=== PATIENT | female | born 1955 | race Caucasian/White ===

== ENCOUNTER → 2017-10-25 | Outpatient (CLI) | payer SELFPAY ==
--- NOTE | 2017-10-25 23:41 | WWHP ---
[facility] - HISTORY AND PHYSICAL DATE OF DICTATION: 10/25/2017 CHIEF COMPLAINT: The patient is here for her routine gynecologic exam and mammogram. HPI: This is a 62-year-old G0 with an LMP of 2004. The patient is without gynecologic complaints. PAST MEDICAL HISTORY: Chronic hypertension and seasonal allergies. MEDICATIONS: Lisinopril 10 mg daily. Calan SR 240 mg daily, Benadryl p.r.n., Advil p.r.n., multivitamin daily, calcium 1000 mg daily, vitamin D3 1000 units daily. ALLERGIES: TO SULFA, PENICILLIN, CODEINE, AND LATEX. PAST SURGICAL HISTORY: Bilateral salpingectomy in 1992 for benign growths, colonoscopy 2012 and this was her second one. 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 SOCIAL HISTORY: She quit smoking in 1979 but has socially smoked cigarettes. She socially drinks alcohol and denies drug use. She has 1 adopted child. She is . 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 FAMILY HISTORY: Mother from pancreatic cancer. Father has hypertension and type 2 diabetes. REVIEW OF SYSTEMS: She has gained about 16 pounds over the last one and half years. She denies respiratory, cardiac or GI problems. PHYSICAL EXAM: Blood pressure 112/75, height 5 feet 4 inches, weight 172 pounds. BMI 30, temperature 97.4, pulse 84. This is a well-developed, well-nourished female who is alert and oriented x3, in no acute distress. HEENT: Within normal limits. NECK: Supple without mass or thyromegaly chest. LUNGS: Clear to auscultation. HEART: Regular rate and rhythm. Breasts are without mass or discharge. Axillary exam is negative for adenopathy. Back negative for CVA tenderness. ABDOMEN: Soft, nontender, without palpable masses. Pelvic exam: External genitalia reveals mild atrophy without lesions. Cervix and vagina reveals mild atrophy without lesions. There is no evidence of prolapse. The uterus is mid position nongravid size and nontender. There are no palpable adnexal masses or tenderness. Rectovaginal exam is negative for mass or tenderness and is negative for occult blood. Extremities nontender. IMPRESSION: 62-year-old menopausal female with normal gynecologic exam. PLAN: 1. Pap smear was deferred since she had a normal 1 less than 2 years ago. 2. Self-breast examination was discussed. 3. Screening mammogram will be done today. 4. Osteoporosis prevention was discussed. I have recommended bone density screening. She states that she would like to do this next year. 5. She will return in 1 year. MMODL / IJN: [id number] /
--- NOTE | 2017-10-26 11:19 | MM ---
Reason for exam: screening (asymptomatic). Last mammogram was performed 1 year and 8 months ago. History: Patient is postmenopausal. Took hormonal contraceptives for 10 years. Physical Findings: A clinical breast exam by your physician is recommended on an annual basis and results should be correlated with mammographic findings. MG 3D Screening Mammo W/Cad Bilateral CC and MLO view(s) were taken. Prior study comparison: February 18, 2016, bilateral MG 3d diag mammo w/cad [facility]. July 10, 2015, mammogram, performed at [facility]. There are scattered fibroglandular densities. There is no discrete abnormality. No significant changes when compared with prior studies. ASSESSMENT: Negative, BI-RAD 1 RECOMMENDATION: Routine screening mammogram of both breasts in 1 year.
== END | disposition home or self-care (01) ==
LOC: WWCWWP 12:14
PROVIDERS: ATTEND Obstetrics & Gynecology
DX: Z12.31 Encounter for screening mammogram for malignant neoplasm of breast (principal)
CPT/HCPCS: 77063; 77067

== ENCOUNTER 2020-08-29 15:28 | Emergency (ER) | payer MEDICARE ==
[2020-08-29 15:49] VITALS: TEMP 98.2
--- NOTE | 2020-08-29 16:21 | XR ---
EXAMINATION TYPE: XR chest 1V portable DATE OF EXAM: 08/29/2020 COMPARISON: None INDICATION: Suspected Covid 19 pneumonia short of breath, cough TECHNIQUE: Single frontal view of the chest is obtained. FINDINGS: The heart size is normal. The pulmonary vasculature is normal. The lungs are clear. IMPRESSION: 1. No acute pulmonary process.
[2020-08-29 16:27] LABS: Basophils # (A) 0.1 k/uL (0-0.2); Basophils % (A) 1 %; Eosinophils # (A) 0.4 k/uL (0-0.7); Eosinophils % (A) 4 %; HCT 43.6 % (34.0-46.0); HGB 14.4 gm/dL (11.4-16.0); Lymphocytes # (A) 1.8 k/uL (1.0-4.8); Lymphocytes % (A) 18 %; MCH 29.9 pg (25.0-35.0); MCV 90.5 fL (80.0-100.0); Monocytes # (A) 0.4 k/uL (0-1.0); Monocytes % (A) 4 %; Neutrophils # (A) 6.9 k/uL (1.3-7.7); Neutrophils % (A) 71 %; Platelet Count 274 k/uL (150-450); RBC 4.82 m/uL (3.80-5.40); RDW 13.2 % (11.5-15.5); WBC 9.7 k/uL (3.8-10.6)
--- NOTE | 2020-08-29 16:35 | ED ---
SOB HPI - General Chief Complaint: Shortness of Breath Stated Complaint: COVID SYMPTOMS. FEELING WORSE. Time Seen by Provider: 08/29/20 15:51 Source: patient, RN notes reviewed, old records reviewed Mode of arrival: wheelchair Limitations: no limitations - History of Present Illness Initial Comments: This is a 65-year-old female she presents today for evaluation regards to shortness of breath. Patient does have persistent shortness of breath here in the ER with occasional cough. Denying chest pain. No recent travel history sick contacts, denying any known coronavirus contacts, patient does debated she has had a fever that started today. No other illnesses no pain no nausea vomiting or diarrhea. 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 MD Complaint: shortness of breath, cough -: days(s) (5) Severity: moderate Severity scale (1-10): 6 Quality: aching Consistency: intermittent Improves With: nothing Worsens With: nothing Known History Of: COPD, asthma, other (History of legionnaire's disease) Context: recent URI, recent illness Associated Symptoms: denies other symptoms - Related Data Home Medications Medication Instructions Recorded Confirmed Albuterol Inhaler [Ventolin Hfa 2 puff INHALATION RT-Q6H PRN 08/29/20 08/29/20 Inhaler] Albuterol Nebulized [Ventolin 2.5 mg INHALATION RT-Q6H PRN 08/29/20 08/29/20 Nebulized] Fexofenadine HCl [Sheron Allergy] 180 mg PO DAILY 08/29/20 08/29/20 Fluticasone/Vilanterol [Breo 1 puff INHALATION RT-DAILY 08/29/20 08/29/20 Ellipta 100-25 Mcg Inhaler] Lisinopril [Zestril] 10 mg PO DAILY 08/29/20 08/29/20 Montelukast Sodium [Singulair] 10 mg PO HS 08/29/20 08/29/20 Verapamil HCl [Verapamil ER] 240 mg PO HS 08/29/20 08/29/20 Allergies Allergy/AdvReac Type Severity Reaction Status Date / Time codeine Allergy Nausea Verified 08/29/20 17:15 latex Allergy Rash/Hives Verified 08/29/20 17:15 Penicillins Allergy Rash/Hives Verified 08/29/20 17:15 Sulfa (Sulfonamide Allergy Swelling Verified 08/29/20 17:15 Antibiotics) Review of Systems ROS Statement: Those systems with pertinent positive or pertinent negative responses have been documented in the HPI. ROS Other: All systems not noted in ROS Statement are negative. Past Medical History Past Medical History: Asthma, Hypertension Additional Past Medical History / Comment(s): legionares disease History of Any Multi-Drug Resistant Organisms: None Reported Past Surgical History: No Surgical Hx Reported Past Psychological History: No Psychological Hx Reported Smoking Status: Never smoker Past Alcohol Use History: None Reported Past Drug Use History: None Reported General Exam Limitations: no limitations General appearance: alert, in no apparent distress Head exam: Present: atraumatic, normocephalic, normal inspection Eye exam: Present: normal appearance, PERRL, EOMI. Absent: scleral icterus, conjunctival injection, periorbital swelling ENT exam: Present: normal exam, mucous membranes moist Neck exam: Present: normal inspection. Absent: tenderness, meningismus, lymphadenopathy Respiratory exam: Present: wheezes. Absent: respiratory distress, rales, rhonchi, stridor Cardiovascular Exam: Present: regular rate, normal rhythm, normal heart sounds. Absent: systolic murmur, diastolic murmur, rubs, gallop, clicks GI/Abdominal exam: Present: soft, normal bowel sounds. Absent: distended, tenderness, guarding, rebound, rigid Extremities exam: Present: normal inspection, full ROM, normal capillary refill. Absent: tenderness, pedal edema, joint swelling, calf tenderness Back exam: Present: normal inspection Neurological exam: Present: alert, oriented X3, CN II-XII intact Psychiatric exam: Present: normal affect, normal mood Skin exam: Present: warm, dry, intact, normal color. Absent: rash Course Vital Signs 08/29/20 08/29/20 08/29/20 15:43 16:16 16:23 Temperature 98.2 F Pulse Rate 98 81 Respiratory 18 17 20 Rate Blood Pressure 157/82 O2 Sat by Pulse 98 94 L Oximetry 08/29/20 08/29/20 16:30 17:31 Temperature Pulse Rate 85 78 Respiratory 18 18 Rate Blood Pressure 129/82 128/72 O2 Sat by Pulse 95 98 Oximetry - Reevaluation(s) Reevaluation #1: 08/29/20 17:17 Record is reviewed Reevaluation #2: 08/29/20 17:18 Patient symptoms unchanged with breathing treatment Reevaluation #3: 08/29/20 18:08 Patient informed results, questions have been answered Medical Decision Making - Medical Decision Making 65 female presents today for evaluation regarding cough or congestion negative coronavirus negative flu negative x-ray. Patient can be discharged home with mild bronchitis - Lab Data Result diagrams: 08/29/20 16:00 08/29/20 16:00 Lab Results 08/29/20 08/29/20 08/29/20 Range/Units 16:00 16:00 16:00 WBC 9.7 (3.8-10.6) k/uL RBC 4.82 (3.80-5.40) m/uL Hgb 14.4 (11.4-16.0) gm/dL Hct 43.6 (34.0-46.0) % MCV 90.5 (80.0-100.0) fL MCH 29.9 (25.0-35.0) pg MCHC 33.0 (31.0-37.0) g/dL RDW 13.2 (11.5-15.5) % Plt Count 274 (150-450) k/uL MPV 7.0 Neutrophils % 71 % Lymphocytes % 18 % Monocytes % 4 % Eosinophils % 4 % Basophils % 1 % Neutrophils # 6.9 (1.3-7.7) k/uL Lymphocytes # 1.8 (1.0-4.8) k/uL Monocytes # 0.4 (0-1.0) k/uL Eosinophils # 0.4 (0-0.7) k/uL Basophils # 0.1 (0-0.2) k/uL PT 9.6 (9.0-12.0) sec INR 0.9 (<1.2) APTT 23.1 (22.0-30.0) sec Sodium 138 (137-145) mmol/L Potassium 4.1 (3.5-5.1) mmol/L Chloride 106 (98-107) mmol/L Carbon Dioxide 26 (22-30) mmol/L Anion Gap 6 mmol/L BUN 19 H (7-17) mg/dL Creatinine 0.83 (0.52-1.04) mg/dL Est GFR (CKD-EPI)AfAm 85 (>60 ml/min/1.73 sqM) Est GFR (CKD-EPI)NonAf 74 (>60 ml/min/1.73 sqM) Glucose 110 H (74-99) mg/dL Plasma Lactic Acid Murtaza (0.7-2.0) mmol/L Calcium 9.2 (8.4-10.2) mg/dL Magnesium 2.1 (1.6-2.3) mg/dL Total Bilirubin 0.4 (0.2-1.3) mg/dL AST 38 H (14-36) U/L ALT 40 H (4-34) U/L Alkaline Phosphatase 73 (38-126) U/L Lactate Dehydrogenase 499 (313-618) U/L C-Reactive Protein <5.0 (<10.0) mg/L Total Protein 7.6 (6.3-8.2) g/dL Albumin 4.3 (3.5-5.0) g/dL Coronavirus (PCR) (Not Detectd) Influenza Type A RNA (Not Detectd) Influenza Type B (PCR) (Not Detectd) 08/29/20 08/29/20 08/29/20 Range/Units 16:00 16:15 17:31 WBC (3.8-10.6) k/uL RBC (3.80-5.40) m/uL Hgb (11.4-16.0) gm/dL Hct (34.0-46.0) % MCV (80.0-100.0) fL MCH (25.0-35.0) pg MCHC (31.0-37.0) g/dL RDW (11.5-15.5) % Plt Count (150-450) k/uL MPV Neutrophils % % Lymphocytes % % Monocytes % % Eosinophils % % Basophils % % Neutrophils # (1.3-7.7) k/uL Lymphocytes # (1.0-4.8) k/uL Monocytes # (0-1.0) k/uL Eosinophils # (0-0.7) k/uL Basophils # (0-0.2) k/uL PT (9.0-12.0) sec INR (<1.2) APTT (22.0-30.0) sec Sodium (137-145) mmol/L Potassium (3.5-5.1) mmol/L Chloride (98-107) mmol/L Carbon Dioxide (22-30) mmol/L Anion Gap mmol/L BUN (7-17) mg/dL Creatinine (0.52-1.04) mg/dL Est GFR (CKD-EPI)AfAm (>60 ml/min/1.73 sqM) Est GFR (CKD-EPI)NonAf (>60 ml/min/1.73 sqM) Glucose (74-99) mg/dL Plasma Lactic Acid Murtaza 1.9 (0.7-2.0) mmol/L Calcium (8.4-10.2) mg/dL Magnesium (1.6-2.3) mg/dL Total Bilirubin (0.2-1.3) mg/dL AST (14-36) U/L ALT (4-34) U/L Alkaline Phosphatase (38-126) U/L Lactate Dehydrogenase (313-618) U/L C-Reactive Protein (<10.0) mg/L Total Protein (6.3-8.2) g/dL Albumin (3.5-5.0) g/dL Coronavirus (PCR) Not Detected (Not Detectd) Influenza Type A RNA Not Detected (Not Detectd) Influenza Type B (PCR) Not Detected (Not Detectd) - EKG Data -: EKG Interpreted by Me (EKG is sinus rhythm 83 CO 148 QRS 90 QTC 434) - Radiology Data Radiology results: report reviewed (Chest x-rays negative for acute disease), image reviewed Disposition Clinical Impression: Acute bronchitis Disposition: HOME SELF-CARE Condition: Good Instructions (If sedation given, give patient instructions): Acute Bronchitis (ED) Is patient prescribed a controlled substance at d/c from ED?: No Referrals: Kourtney Vizcaino MD [Primary Care Provider] - 1-2 days
[2020-08-29 16:36] LABS: INR 0.9 (<1.2); Partial Thromboplastin Time 23.1 sec (22.0-30.0); Prothrombin Time 9.6 sec (9.0-12.0)
[2020-08-29] MEDS: ALBUTEROL HFA INHALER INHALATION STA (16:43)
[2020-08-29 16:44] LABS: ALT 40 U/L (4-34); AST 38 U/L (14-36); African American GFR (CKD) 85 (>60 ml/min/1.73 sqM); Albumin 4.3 g/dL (3.5-5.0); Alkaline Phosphatase 73 U/L (38-126); Anion Gap 6 mmol/L; Blood Urea Nitrogen 19 mg/dL (7-17); C Reactive Protein <5.0 mg/L (<10.0); Calcium 9.2 mg/dL (8.4-10.2); Carbon Dioxide 26 mmol/L (22-30); Chloride 106 mmol/L (98-107); Glucose 110 mg/dL (74-99); LDH 499 U/L (313-618); Magnesium 2.1 mg/dL (1.6-2.3); Non-African American GFR(CKD) 74 (>60 ml/min/1.73 sqM); Potassium 4.1 mmol/L (3.5-5.1); Sodium 138 mmol/L (137-145); Total Bilirubin 0.4 mg/dL (0.2-1.3); Total Protein 7.6 g/dL (6.3-8.2)
[2020-08-29] MEDS: ACETAMINOPHEN TAB 500 MG TAB PO STA (16:55)
[2020-08-29] MEDS: SODIUM CHLORIDE 0.9% 1,000 ML IV STA (16:56)
[2020-08-29] MEDS: KETOROLAC 15 MG/ML 1 ML VIAL IVP STA (16:56)
[2020-08-29 17:32] VITALS: BP 128/72
[2020-08-29] MEDS: DEXAMETHASONE SOD PHOSPHATE 10 MG/ML 1 ML VIAL IV STA (18:00)
[2020-08-29 18:13] VITALS: PULSE 80; RESP 15
[2020-08-29] MEDS ORDERED: ALBUTEROL HFA INHALER INHALATION SCH (20:00)
== END 2020-08-29 18:12 | disposition home or self-care (01) ==
LOC: EC 15:28
DX: J20.9 Acute bronchitis, unspecified (principal); I10 Essential (primary) hypertension; Z20.828 Contact with and (suspected) exposure to other viral communicable diseases; Z79.899 Other long term (current) drug therapy; Z88.0 Allergy status to penicillin; Z88.2 Allergy status to sulfonamides; Z88.6 Allergy status to analgesic agent; Z91.040 Latex allergy status
CPT/HCPCS: 36415; 71045; 80053; 83605; 83615; 83735; 84145; 85025; 85610; 85730; 86140; 87502; 87635; 93005; 94640; 96360; 99285

== ENCOUNTER → 2020-09-24 | Outpatient (CLI) | payer MEDICARE ==
[2020-09-24 11:29] VITALS: BP 150/85; PULSE 76; RESP 20; TEMP 97.9
--- NOTE | 2020-09-24 12:38 | P.HPOB ---
History of Present Illness H&P Date: 09/24/20 Chief Complaint: The patient is here for her routine gynecologic exam and ma mmogram. This is a 65-year-old G0 with an LMP of 2003. The patient is without gynecologic complaints and denies any postmenopausal bleeding. She states in a questionnaire that she believes she was exposed to JOSE ALEJANDRO in utero. In questioning the patient, she confirms that she believes her mother took JOSE ALEJANDRO when she was with the patient in utero. Review of Systems She has gained about 30 pounds since she was last seen about 3 years ago. Respiratory: She has been having some lung issues since she was diagnosed with legionnaire's disease in 2017 and sees a radius grinder for this. She can get short of breath with exertion. Cardiac: She notices her heart increases in rate with exertion especially when she gets short of breath. She sees a long specialist for this. She denies GI problems. Past Medical History Past Medical History: Asthma, Hypertension Additional Past Medical History / Comment(s): legionares disease. Seasonal ALLERGIES. 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 History of Any Multi-Drug Resistant Organisms: None Reported Past Surgical History: No Surgical Hx Reported Additional Past Surgical History / Comment(s): Bilateral salpingectomy for b enign growths in 1992. Colonoscopy 2012(next after 7yr) Past Psychological History: No Psychological Hx Reported Smoking Status: Former smoker Past Alcohol Use History: Occasional (0-1 per week) Additional Past Alcohol Use History / Comment(s): Quit smoking in 2017. Past Drug Use History: None Reported Additional History: She is . 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 She currently works at a [employer] in [place]. - Past Family History Mother Family Medical History: Cancer Additional Family Medical History / Comment(s): Pancreatic cancer. Father Family Medical History: Diabetes Mellitus, Hypertension Medications and Allergies Home Medications Medication Instructions Recorded Confirmed Type Albuterol Inhaler [Ventolin Hfa 2 puff INHALATION RT-Q6H PRN 08/29/20 09/24/20 History Inhaler] Albuterol Nebulized [Ventolin 2.5 mg INHALATION RT-Q6H PRN 08/29/20 09/24/20 History Nebulized] Fexofenadine HCl [Sheron Allergy] 180 mg PO DAILY 08/29/20 09/24/20 History Fluticasone/Vilanterol [Breo 1 puff INHALATION RT-DAILY 08/29/20 09/24/20 History Ellipta 100-25 Mcg Inhaler] Lisinopril [Zestril] 10 mg PO DAILY 08/29/20 09/24/20 History Montelukast Sodium [Singulair] 10 mg PO HS 08/29/20 09/24/20 History Verapamil HCl [Verapamil ER] 240 mg PO HS 08/29/20 09/24/20 History Ascorbic Acid [Vitamin C] 500 mg PO DAILY 09/24/20 09/24/20 History Cholecalciferol (Vitamin D3) 75 mcg PO DAILY 09/24/20 09/24/20 History [Vitamin D3 (3000 Iu)] Multivitamin [Multivitamins Adult 1 tab PO DAILY 09/24/20 09/24/20 History Gummies] Allergies Allergy/AdvReac Type Severity Reaction Status Date / Time codeine Allergy Nausea Verified 09/24/20 11:20 latex Allergy Rash/Hives Verified 09/24/20 11:20 Penicillins Allergy Rash/Hives Verified 09/24/20 11:20 Sulfa (Sulfonamide Allergy Swelling Verified 09/24/20 11:20 Antibiotics) Exam Vital Signs Temp Pulse Resp BP Pulse Ox 09/24/20 11:24 97.9 F 76 20 150/85 97 Intake and Output 09/23/20 09/24/20 09/24/20 22:59 06:59 14:59 Other: Weight 92.986 kg Height 5 feet 2 inches, weight 205 pounds, BMI 37.5. This is a well-developed well-nourished white female who is alert and oriented times 3 in no acute distress. HEENT: Within normal limits. NECK: Supple without mass or thyromegaly. CHEST AND LUNGS: Mild prolonged expiration, otherwise Clear to auscultation. No wheezing is noted. HEART: Regular rate and rhythm. BREASTS: Are without mass or discharge. AXILLARY EXAM: Negative for adenopathy. BACK: Negative for CVA tenderness. ABDOMEN: Soft, nontender, without palpable masses. PELVIC EXAM: Normal external genitalia with mild atrophy. Cervix and vagina appear normal mild atrophy. There is no unusual discharge. There is no evidence of prolapse. The uterus is midposition, nongravid size and nontender. There are no palpable adnexal masses or tenderness. RECTAL EXAM: To vaginal exam is negative for mass or tenderness and is negative for occult blood. EXTREMITIES: Nontender. IMPRESSION: 1. 65-year-old menopausal female with normal gynecologic exam. 2. Possible JOSE ALEJANDRO exposure in utero per the patient. There are no significant physical findings on exam. 3. Elevated blood pressure with history of chronic hypertension. PLAN: 1. Pap smear cotest was performed. We will plan on continuing cervical cancer screening because of her possible history of JOSE ALEJANDRO exposure. We will plan on Pap smear cotest every 3 years or cervical cytology alone every 1-2 years. 2. Self breast awareness was discussed with the patient. 3. Screening mammogram will be done today. 4. Osteoporosis prevention was discussed. I have stressed the importance of adequate calcium, vitamin D and regular exercise. Recommended amounts of calcium and vitamin D were also discussed. Baseline bone density testing will be done today. 5. We have discussed her elevated blood pressure. I have recommended that she check her own blood pressures at home on a regular basis. She states she does have a blood pressure cuff for this. She will follow-up with her PCP for blood pressure elevations. 6. She states she is due for a colonoscopy and will be doing this through her PCP. 7. Especially because of her respiratory problems, I have recommended that she get flu shots yearly and I have recommended that she get the Covid vaccination when it becomes available to her. 8. The patient was advised to return in 1-2 years for her well woman examination.
--- NOTE | 2020-09-24 15:54 | BD ---
EXAMINATION TYPE: Axial Bone Density DATE OF EXAM: 09/24/2020 COMPARISON: NONE CLINICAL HISTORY: Height: 5 FT 2 IN Weight: 205 FRAX RISK QUESTIONS: Alcohol (3 or more units per day): NO Family History (Parent hip fracture): NO Glucocorticoids (More than 3mos): YES (Ex: prednisone, prednisolone, methylprednisolone, dexamethasone, and hydrocortisone). History of Fracture in Adulthood: YES Secondary Osteoporosis: 1. Type 1 Diabetes: NO 2. Hyperthyroidism: NO 3. Menopause before 45: NO 4. Malnutrition: NO 5. Chronic liver disease: NO Rheumatoid Arthritis: NO Current Tobacco Use: NO RISK FACTORS HISTORY OF: History of Wrist Fracture: RT WRIST When: 2012 Family History of Osteoporosis: NO Active: YES Diet low in dairy products/other sources of calcium: NO Postmenopausal woman: AGE 48 Take estrogen and/or progesterone medications: NONE Lost more than 2 inches in height since high school: NO MEDICATIONS: Prednisone or other steroids: INHALERS How Long: APPROX 2-3 YEARS Additional Medications: INHALERS,LISINOPRIL, VERAPAMIL , JOJO, SINGULAIR, VITAMINS Additional History: EXAM MEASUREMENTS: Bone mineral densitometry was performed using the [employer] System. Bone mineral density as measured about the Lumbar spine is: ----- L1-L4(G/cm2): 1.067 T Score Values are as follows: ----- L2: -1.7 ----- L3: -0.9 ----- L4: -0.3 ----- L1-L4: -0.9 BASELINE Bone mineral density about the R hip (g/cm2): 0.824 Bone mineral density about the L hip (g/cm2): 0.811 T Score values are as follows: -----R Neck: -1.5 -----L Neck: -1.6 -----R Total: -1.5 -----L Total: -1.3 BASELINE IMPRESSION: Osteopenia (T Score between -2.5 and -1). There is slightly increased risk of fracture and the patient may be considered for treatment. Re-Screen 2-5 years. NOTE: T-SCORE=SD OF THE YOUNG ADULT MEAN.
--- NOTE | 2020-09-25 11:29 | MM ---
Reason for exam: screening (asymptomatic). Last mammogram was performed 2 years and 11 months ago. History: Patient is postmenopausal. Took hormonal contraceptives for 10 years. Physical Findings: A clinical breast exam by your physician is recommended on an annual basis and results should be correlated with mammographic findings. MG 3D Screening Mammo W/Cad Bilateral CC and MLO view(s) were taken. Prior study comparison: December 04, 2018, mammogram. October 25, 2017, bilateral MG 3d screening mammo w/cad. February 18, 2016, bilateral MG 3d diag mammo w/cad [facility]. The breast tissue is almost entirely fat. There is no discrete abnormality. No significant changes when compared with prior studies. ASSESSMENT: Negative, BI-RAD 1 RECOMMENDATION: Routine screening mammogram of both breasts in 1 year.
== END | disposition home or self-care (01) ==
LOC: WWCWWP 11:09
PROVIDERS: ATTEND Obstetrics & Gynecology
DX: Z12.31 Encounter for screening mammogram for malignant neoplasm of breast (principal); M85.80 Other specified disorders of bone density and structure, unspecified site; Z78.0 Asymptomatic menopausal state
CPT/HCPCS: 77063; 77067; 77080

== ENCOUNTER → 2022-02-02 | Outpatient (CLI) | payer MEDICARE ==
[2022-02-02 10:59] VITALS: BP 144/88; PULSE 67; RESP 17; TEMP 98.3
--- NOTE | 2022-02-02 16:20 | P.HPOB ---
History of Present Illness H&P Date: 02/02/22 Chief Complaint: The patient is here for her routine gynecologic exam and ma mmogram. This is a 66-year-old G0 with an LMP of 2003. The patient has been experiencing skin problems from her head to her legs. She has had various rashes and pruritus. She also has noticed itching in the vulvar and perineal areas. She started seeing a explosion welder, Dr. Morrow, or his physician's tutoring assistant. She was told she had either lichen sclerosus or eczema. She initially was treated with 2-1/2% hydrocortisone ointment which was not helpful. She did have a skin biopsy from her back which was called a hypersensitivity reaction. The vulva was not biopsied. During this past week she was prescribed clobetasol ointment which did help with her vulvar itching. The itching in the vulvar area seemed to be mostly at the apex of her vulva, the perineum and some itching in the perianal area. She is otherwise without gynecologic complaints and denies any postmenopausal bleeding. Review of Systems The patient has gained 9 pounds over the last year. She denies respiratory, cardiac, or G.I. problems. Past Medical History Past Medical History: Asthma, Hypertension Additional Past Medical History / Comment(s): legionares disease. Seasonal ALLERGIES. 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 History of Any Multi-Drug Resistant Organisms: None Reported Additional Past Surgical History / Comment(s): Bilateral salpingectomy for benign growths in 1992. Colonoscopy 2012(next after 7yr) Past Psychological History: No Psychological Hx Reported Smoking Status: Former smoker Past Alcohol Use History: Occasional (0-1 week.) Additional Past Alcohol Use History / Comment(s): Quit smoking in 2017. Past Drug Use History: None Reported Additional History: She is . 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 - Past Family History Mother Family Medical History: Cancer Additional Family Medical History / Comment(s): Pancreatic cancer. Father Family Medical History: Diabetes Mellitus, Hypertension Medications and Allergies Home Medications Medication Instructions Recorded Confirmed Type Albuterol Inhaler [Ventolin Hfa 2 puff INHALATION RT-Q6H PRN 08/29/20 02/02/22 History Inhaler] Albuterol Nebulized [Ventolin 2.5 mg INHALATION RT-Q6H PRN 08/29/20 02/02/22 History Nebulized] Fexofenadine HCl [Sheron Allergy] 180 mg PO DAILY 08/29/20 02/02/22 History Fluticasone/Vilanterol [Breo 1 puff INHALATION RT-DAILY 08/29/20 02/02/22 History Ellipta 100-25 Mcg Inhaler] Montelukast Sodium [Singulair] 10 mg PO HS 08/29/20 02/02/22 History Verapamil HCl [Verapamil ER] 240 mg PO HS 08/29/20 02/02/22 History Ascorbic Acid [Vitamin C] 500 mg PO DAILY 09/24/20 02/02/22 History Cholecalciferol (Vitamin D3) 75 mcg PO DAILY 09/24/20 02/02/22 History [Vitamin D3 (3000 Iu)] Multivitamin [Multivitamins Adult 1 tab PO DAILY 09/24/20 02/02/22 History Gummies] Atorvastatin [Lipitor] 20 mg PO DAILY 02/02/22 02/02/22 History Losartan Potassium [Cozaar] 25 mg PO DAILY 02/02/22 02/02/22 History Allergies Allergy/AdvReac Type Severity Reaction Status Date / Time codeine Allergy Nausea Verified 02/02/22 10:49 latex Allergy Rash/Hives Verified 02/02/22 10:49 lisinopril Allergy Cough Unverified 02/02/22 10:50 Penicillins Allergy Rash/Hives Verified 02/02/22 10:49 Sulfa (Sulfonamide Allergy Swelling Verified 02/02/22 10:49 Antibiotics) Exam Vital Signs Temp Pulse Resp BP Pulse Ox 02/02/22 10:56 98.3 F 67 17 144/88 95 Intake and Output 02/02/22 02/02/22 02/02/22 06:59 14:59 22:59 Other: Weight 97.069 kg Height 5 feet 4 inches, weight 214 pounds, BMI 36.7. This is a well-developed well-nourished white female who is alert and oriented times 3 in no acute distress. HEENT: Within normal limits. NECK: Supple without mass or thyromegaly. CHEST AND LUNGS: Clear to auscultation. HEART: Regular rate and rhythm. BREASTS: Are without mass or discharge. AXILLARY EXAM: Negative for adenopathy. BACK: Negative for CVA tenderness. ABDOMEN: Soft, nontender, without palpable masses. PELVIC EXAM: External genitalia reveals mild atrophy. There is mild pallor at the apex of the vulva superior to the clitoris. There is also mild pallor in the atrophic perineum and mild pallor in the perianal area. The rest of the vulva reveals minimal erythema. There is no ulceration or excoriation noted. Cervix and vagina appear normal mild atrophy. There is no unusual discharge. There is no evidence of prolapse. The uterus is midposition, nongravid size and nontender. There are no palpable adnexal masses or tenderness. RECTAL EXAM: Rectovaginal exam is negative for mass or tenderness and is negative for occult blood. EXTREMITIES: Nontender. IMPRESSION: 1. 66-year-old menopausal female with mild pallor and pruritus in the area of the vulvar apex, perineum and perianal areas. The findings are consistent with mild lichen sclerosus. She has had symptomatic relief with Temovate ointment during the past 1 week which was prescribed by her explosion welder. 2. 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 PLAN: 1. Pap smear was deferred since she had a negative Pap smear, test on 09/24/2020. We will plan on repeating this every 2-3 years beyond age 63 because of the history of JOSE ALEJANDRO exposure. 2. Self breast awareness was discussed with the patient. We have also discussed symptoms associated with inflammatory breast cancer. 3. Screening mammogram was done today. 4. We have had a long discussion regarding lichen sclerosus of the vulva. She will continue to use Temovate ointment 0.05% twice a day when necessary for vulvar itching. She will call if symptoms do not continue to respond to the ointment or if other focal lesions are noted. Information on lichen sclerosis of the vulva was given to the patient. She understands this is a chronic condition. She understands that she should have pelvic exams at least yearly. The electronic prescription will be sent to [facility] pharmacy in [place]. 5. She knows that she is due for a colonoscopy and we will arrange this through her PCP. 6. Osteoporosis prevention was discussed. We'll plan on doing a bone density test in 1 year. Her last bone density test was done in August 2020. 7. She was advised to return in one year for her annual well woman exam and as needed.
--- NOTE | 2022-02-04 17:35 | MM ---
Reason for Exam: Screening (asymptomatic). Last mammogram was performed 1 year(s) and 5 month(s) ago. Patient History: Menarche at age 10. Postmenopausal. Patient used Hormonal Contraceptives for 10 years. Risk Values: Sameera 5 year model risk: 1.2%. NCI Lifetime model risk: 4.0%. Prior Study Comparison: 10/25/2017 Bilateral Screening Mammogram, [facility]. 12/04/2018 Screening Mammogram, Unknown. 09/24/2020 Bilateral Screening Mammogram, [facility]. Tissue Density: There are scattered fibroglandular densities. Findings: Analyzed By CAD. No suspicious groups of microcalcifications, spiculated or lobular masses, Architectural distortion or other secondary signs of malignancy are mammographically apparent. Overall Assessment: Negative, BI-RAD 1 Management: Screening Mammogram of both breasts in 1 year. A negative mammogram report should not preclude additional follow up of suspicious palpable abnormalities. Patient should continue monthly self breast exam. A clinical breast exam by your physician is recommended on an annual basis and results should be correlated with mammographic findings. Electronically signed and approved by: Jesus Lowery D.O. Radiologis
== END | disposition home or self-care (01) ==
LOC: WWCWWP 10:37
PROVIDERS: ATTEND Obstetrics & Gynecology
DX: Z12.31 Encounter for screening mammogram for malignant neoplasm of breast (principal)
CPT/HCPCS: 77063; 77067

== ENCOUNTER 2022-08-05 14:34 | Observation (INO) | payer MEDICARE ==
--- NOTE | 2022-08-05 16:50 | XR ---
EXAMINATION TYPE: XR chest 2V DATE OF EXAM: 08/05/2022 4:41 PM COMPARISON: Chest radiographs from 03/05/2021 TECHNIQUE: XR chest 2V Frontal and lateral views of the chest. CLINICAL INDICATION:Female, 67 years old with history of difficulty breathing; FINDINGS: Lungs/Pleura: There is no evidence of pleural effusion, focal consolidation, or pneumothorax. Pulmonary vascularity: Unremarkable. Heart/mediastinum: Cardiomediastinal silhouette is unremarkable. Musculoskeletal: No acute osseous pathology. IMPRESSION: 1. No acute cardiopulmonary disease process. 2. COPD changes.
[2022-08-05 17:15] LABS: Basophils # (A) 0.1 k/uL (0-0.2); Basophils % (A) 1 %; Eosinophils # (A) 0.4 k/uL (0-0.7); Eosinophils % (A) 4 %; HCT 41.4 % (34.0-46.0); HGB 14.2 gm/dL (11.4-16.0); Lymphocytes % (A) 19 %; MCH 31.3 pg (25.0-35.0); MCHC 34.4 g/dL (31.0-37.0); MCV 90.9 fL (80.0-100.0); Mean Platelet Volume 7.4; Monocytes # (A) 0.4 k/uL (0-1.0); Monocytes % (A) 4 %; Neutrophils # (A) 7.3 k/uL (1.3-7.7); Neutrophils % (A) 71 %; Platelet Count 229 k/uL (150-450); RBC 4.55 m/uL (3.80-5.40); WBC 10.2 k/uL (3.8-10.6)
[2022-08-05 17:25] LABS: INR 0.9 (<1.2); Partial Thromboplastin Time 24.1 sec (22.0-30.0)
[2022-08-05 17:31] LABS: Calcium 8.4 mg/dL (8.4-10.2); Magnesium 2.2 mg/dL (1.6-2.3); Potassium 4.1 mmol/L (3.5-5.1); Total Bilirubin 0.8 mg/dL (0.2-1.3); Total Protein 6.7 g/dL (6.3-8.2)
[2022-08-05] MEDS ORDERED: ALBUTEROL HFA INHALER INHALATION STA (20:45)
[2022-08-05] MEDS ORDERED: methylPREDNISolone SOD SUCCI 125 MG/2 ML VIAL IV STA (20:45)
--- NOTE | 2022-08-05 21:11 | ED ---
SOB HPI - General Chief Complaint: Shortness of Breath Stated Complaint: SOB Time Seen by Provider: 08/05/22 20:30 Source: patient Mode of arrival: ambulatory Limitations: no limitations - History of Present Illness Initial Comments: Patient is a 67-year-old female with history of asthma and legionnaires presenting with chief complaint of difficulty breathing. Patient states that for the last 4 days she has had worsening increasing difficulty breathing. She was seen at her PCPs office today, who advised her to report to the ER. She admits to nonproductive cough. She admits to chest tightness, denies chest pain. No fever or chills. No nausea or vomiting. She has been taking her maintenance inhalers and nebulizer treatments at home, however they have not been helping her symptoms. - Related Data Home Medications Medication Instructions Recorded Confirmed Albuterol Inhaler [Ventolin Hfa 2 puff INHALATION RT-Q6H PRN 08/29/20 08/05/22 Inhaler] Albuterol Nebulized [Ventolin 2.5 mg INHALATION RT-Q6H PRN 08/29/20 08/05/22 Nebulized] Montelukast Sodium [Singulair] 10 mg PO HS 08/29/20 08/05/22 Verapamil HCl [Verapamil ER] 240 mg PO HS 08/29/20 08/05/22 Ascorbic Acid [Vitamin C] 500 mg PO BID 09/24/20 08/05/22 Cholecalciferol (Vitamin D3) 75 mcg PO DAILY 09/24/20 08/05/22 [Vitamin D3 (3000 Iu)] Multivitamin [Multivitamins Adult 1 tab PO DAILY 09/24/20 08/05/22 Gummies] Atorvastatin [Lipitor] 20 mg PO HS 02/02/22 08/05/22 Losartan Potassium [Cozaar] 25 mg PO DAILY 02/02/22 08/05/22 Budesonide/Formoterol Fumarate 2 puff INHALATION RT-BID 08/05/22 08/05/22 [Symbicort 160-4.5 Mcg Inhaler] Cetirizine HCl [Zyrtec] 20 mg PO DAILY 08/05/22 08/05/22 Previous Rx's Medication Instructions Recorded predniSONE 10 mg PO DIRECTED #30 tab 08/06/22 Allergies Allergy/AdvReac Type Severity Reaction Status Date / Time codeine Allergy Nausea Verified 08/05/22 21:19 latex Allergy Rash/Hives Verified 08/05/22 21:19 lisinopril Allergy Cough Verified 08/05/22 21:19 Penicillins Allergy Rash/Hives Verified 08/05/22 21:19 Sulfa (Sulfonamide Allergy Swelling Verified 08/05/22 21:19 Antibiotics) Review of Systems ROS Statement: Those systems with pertinent positive or pertinent negative responses have been documented in the HPI. ROS Other: All systems not noted in ROS Statement are negative. 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 Seasonal ALLERGIES. 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 History of Any Multi-Drug Resistant Organisms: None Reported Past Surgical History: No Surgical Hx Reported Additional Past Surgical History / Comment(s): Bilateral salpingectomy for benign growths in 1992. Colonoscopy 2012(next after 7yr) Past Psychological History: No Psychological Hx Reported Smoking Status: Former smoker Past Alcohol Use History: Occasional Past Drug Use History: None Reported - Past Family History Mother Family Medical History: Cancer Additional Family Medical History / Comment(s): Pancreatic cancer. Father Family Medical History: Diabetes Mellitus, Hypertension General Exam Limitations: no limitations General appearance: alert, in no apparent distress Head exam: Present: atraumatic, normocephalic, normal inspection Eye exam: Present: normal appearance Neck exam: Present: normal inspection Respiratory exam: Present: wheezes (expiratory) Cardiovascular Exam: Present: regular rate, normal rhythm, normal heart sounds. Absent: systolic murmur, diastolic murmur, rubs, gallop, clicks Neurological exam: Present: alert, oriented X3, CN II-XII intact Psychiatric exam: Present: normal affect, normal mood Skin exam: Present: warm, dry, intact, normal color. Absent: rash Course Vital Signs 08/05/22 08/05/22 08/05/22 15:06 22:21 23:17 Temperature 97.7 F Pulse Rate 83 77 76 Respiratory 20 18 Rate Blood Pressure 157/81 O2 Sat by Pulse 97 96 Oximetry 08/05/22 08/06/22 08/06/22 23:24 00:00 01:00 Temperature 98.2 F Pulse Rate 80 63 76 Respiratory 18 18 Rate Blood Pressure 140/76 O2 Sat by Pulse 95 95 Oximetry 08/06/22 08/06/22 08/06/22 02:00 05:56 08:18 Temperature 97.8 F 97.7 F Pulse Rate 79 85 84 Respiratory 18 18 Rate Blood Pressure 144/78 148/78 O2 Sat by Pulse 94 L 96 Oximetry 08/06/22 08/06/22 08/06/22 08:19 08:30 10:00 Temperature 98.2 F Pulse Rate 104 H 93 Respiratory 20 Rate Blood Pressure 130/88 O2 Sat by Pulse 94 L 97 Oximetry Medical Decision Making - Medical Decision Making Patient is a 67-year-old female with history of asthma legionella presenting with chief complaint of difficulty breathing. Patient states that over the last 4 days she has had persistent difficulty breathing. On examination she is clearly short of breath and showing increased respiratory effort, there are diffuse expiratory wheezes heard on auscultation. She is 97% on room air. Lab work is grossly negative. Patient is negative for Covid and influenza. Chest x-ray shows COPD changes. This is confirmed through my interpretation. Patient is given albuterol inhaler prior to viral swabs returning. She is also given DuoNeb treatment here in the ER. Oxygen saturation began to range from 92-93% on room air, patient was placed on 2 L nasal cannula, she reported great improve ment in her symptoms with oxygen. Patient begins feeling short of breath with oxygen is removed. Patient will be admitted for COPD exacerbation. Spoke with Dr. Graham who accepted admission. Patient is agreeable with this plan. I discussed this case with my attending Dr. Rubi. - Lab Data Result diagrams: 08/05/22 16:47 08/05/22 16:47 Lab Results 08/05/22 08/05/22 08/05/22 Range/Units 16:47 16:47 16:47 WBC 10.2 (3.8-10.6) k/uL RBC 4.55 (3.80-5.40) m/uL Hgb 14.2 (11.4-16.0) gm/dL Hct 41.4 (34.0-46.0) % MCV 90.9 (80.0-100.0) fL MCH 31.3 (25.0-35.0) pg MCHC 34.4 (31.0-37.0) g/dL RDW 13.0 (11.5-15.5) % Plt Count 229 (150-450) k/uL MPV 7.4 Neutrophils % 71 % Lymphocytes % 19 % Monocytes % 4 % Eosinophils % 4 % Basophils % 1 % Neutrophils # 7.3 (1.3-7.7) k/uL Lymphocytes # 2.0 (1.0-4.8) k/uL Monocytes # 0.4 (0-1.0) k/uL Eosinophils # 0.4 (0-0.7) k/uL Basophils # 0.1 (0-0.2) k/uL PT 10.0 (9.0-12.0) sec INR 0.9 (<1.2) APTT 24.1 (22.0-30.0) sec Sodium 139 (137-145) mmol/L Potassium 4.1 (3.5-5.1) mmol/L Chloride 106 (98-107) mmol/L Carbon Dioxide 28 (22-30) mmol/L Anion Gap 5 mmol/L BUN 15 (7-17) mg/dL Creatinine 0.81 (0.52-1.04) mg/dL Est GFR (CKD-EPI)AfAm 86 (>60 ml/min/1.73 sqM) Est GFR (CKD-EPI)NonAf 75 (>60 ml/min/1.73 sqM) Glucose 84 (74-99) mg/dL Calcium 8.4 (8.4-10.2) mg/dL Magnesium 2.2 (1.6-2.3) mg/dL Total Bilirubin 0.8 (0.2-1.3) mg/dL AST 41 H (14-36) U/L ALT 46 H (4-34) U/L Alkaline Phosphatase 87 (38-126) U/L Troponin I (0.000-0.034) ng/mL Total Protein 6.7 (6.3-8.2) g/dL Albumin 4.0 (3.5-5.0) g/dL Coronavirus (PCR) (Not Detectd) Influenza Type A RNA (Not Detectd) Influenza Type B (PCR) (Not Detectd) 08/05/22 08/05/22 08/05/22 Range/Units 16:47 20:04 20:04 WBC (3.8-10.6) k/uL RBC (3.80-5.40) m/uL Hgb (11.4-16.0) gm/dL Hct (34.0-46.0) % MCV (80.0-100.0) fL MCH (25.0-35.0) pg MCHC (31.0-37.0) g/dL RDW (11.5-15.5) % Plt Count (150-450) k/uL MPV Neutrophils % % Lymphocytes % % Monocytes % % Eosinophils % % Basophils % % Neutrophils # (1.3-7.7) k/uL Lymphocytes # (1.0-4.8) k/uL Monocytes # (0-1.0) k/uL Eosinophils # (0-0.7) k/uL Basophils # (0-0.2) k/uL PT (9.0-12.0) sec INR (<1.2) APTT (22.0-30.0) sec Sodium (137-145) mmol/L Potassium (3.5-5.1) mmol/L Chloride (98-107) mmol/L Carbon Dioxide (22-30) mmol/L Anion Gap mmol/L BUN (7-17) mg/dL Creatinine (0.52-1.04) mg/dL Est GFR (CKD-EPI)AfAm (>60 ml/min/1.73 sqM) Est GFR (CKD-EPI)NonAf (>60 ml/min/1.73 sqM) Glucose (74-99) mg/dL Calcium (8.4-10.2) mg/dL Magnesium (1.6-2.3) mg/dL Total Bilirubin (0.2-1.3) mg/dL AST (14-36) U/L ALT (4-34) U/L Alkaline Phosphatase (38-126) U/L Troponin I <0.012 (0.000-0.034) ng/mL Total Protein (6.3-8.2) g/dL Albumin (3.5-5.0) g/dL Coronavirus (PCR) Not Detected (Not Detectd) Influenza Type A RNA Not Detected (Not Detectd) Influenza Type B (PCR) Not Detected (Not Detectd) Disposition Clinical Impression: Acute exacerbation of chronic obstructive pulmonary disease Disposition: ADMITTED IP TO THIS HOSP Condition: Fair Time of Disposition: 00:23 Decision to Admit Reason: Admit from EC Decision Date: 08/06/22 Decision Time: 00:23
[2022-08-05] MEDS ORDERED: IPRATROPIUM-ALBUTEROL 3 ML NEB INHALATION STA ×2 (21:19→21:47)
[2022-08-05] MEDS ORDERED: IPRATROPIUM-ALBUTEROL 3 ML NEB INHALATION PRN (23:57)
[2022-08-06] MEDS ORDERED: NALOXONE 0.4 MG/ML 1 ML VIAL IV PRN (00:15)
[2022-08-06] MEDS ORDERED: IPRATROPIUM-ALBUTEROL 3 ML NEB INHALATION STA (00:19)
[2022-08-06] MEDS ORDERED: IPRATROPIUM-ALBUTEROL 3 ML NEB INHALATION SCH (08:00)
[2022-08-06] MEDS ORDERED: predniSONE 20 MG TAB PO SCH (09:00)
[2022-08-06 10:04] VITALS: BP 130/88; PULSE 93; RESP 20; TEMP 98.2
--- NOTE | 2022-08-06 11:29 | P.CNPUL ---
History of Present Illness Consult date: 08/06/22 Requesting physician: Barber Graham Reason for consult: dyspnea, cough, asthma, hypoxemia Chief complaint: Shortness of breath. History of present illness: Pulmonary consult dated 08/06/2022. 67-year-old female seen in the emergency room, room #8. The patient has a history of COPD/asthma. The patient came in with complaints of increasing shortness of breath, cough, wheezing, and chest tightness. Today, she's feeling much improved. Her chest x-ray was negative. I recently saw in the office, July 08. At that time, her lung disease was active the we treated with steroids and antibiotics. She did get better, but not worse again. I apparently diagnosed her as having moderately severe chronic bronchial asthma. She does have an appointment to see me next week on August 10. I think the patient could likely be discharged from the emergency room, with prednisone. CBC is completely normal. Coagulation studies are normal. Electrolytes are normal. Kidney function is normal. AST and ALT were 41 and 46 respectively. Testing for coronavirus, influenza A, and influenza B, were all negative. Review of Systems REVIEW OF SYSTEMS: CONSTITUTIONAL: [Negative.] NEUROLOGIC: [ Negative.] HEENT: [ Negative.] CARDIAC: [Negative.] PULMONARY: Shortness of breath, cough, wheezing, and chest tightness. GI: [Negative.] : [Negative.] RHEUMATOLOGIC: [ Negative.] IMMUNOLOGIC: [ Negative.] ENDOCRINE: [Negative. ] DERMATOLOGIC: [Negative.] Past Medical History Past Medical History: Asthma, Hypertension, Renal Disease Additional Past Medical History / Comment(s): legionares disease. Seasonal ALLERGIES. 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 History of Any Multi-Drug Resistant Organisms: None Reported Past Surgical History: No Surgical Hx Reported Additional Past Surgical History / Comment(s): Bilateral salpingectomy for benign growths in 1992. Colonoscopy 2012(next after 7yr) Past Psychological History: No Psychological Hx Reported Smoking Status: Former smoker Past Alcohol Use History: Occasional Past Drug Use History: None Reported - Past Family History Mother Family Medical History: Cancer Additional Family Medical History / Comment(s): Pancreatic cancer. Father Family Medical History: Diabetes Mellitus, Hypertension Medications and Allergies Home Medications Medication Instructions Recorded Confirmed Type Albuterol Inhaler [Ventolin Hfa 2 puff INHALATION RT-Q6H PRN 08/29/20 08/05/22 History Inhaler] Albuterol Nebulized [Ventolin 2.5 mg INHALATION RT-Q6H PRN 08/29/20 08/05/22 History Nebulized] Montelukast Sodium [Singulair] 10 mg PO HS 08/29/20 08/05/22 History Verapamil HCl [Verapamil ER] 240 mg PO HS 08/29/20 08/05/22 History Ascorbic Acid [Vitamin C] 500 mg PO BID 09/24/20 08/05/22 History Cholecalciferol (Vitamin D3) 75 mcg PO DAILY 09/24/20 08/05/22 History [Vitamin D3 (3000 Iu)] Multivitamin [Multivitamins Adult 1 tab PO DAILY 09/24/20 08/05/22 History Gummies] Atorvastatin [Lipitor] 20 mg PO HS 02/02/22 08/05/22 History Losartan Potassium [Cozaar] 25 mg PO DAILY 02/02/22 08/05/22 History Budesonide/Formoterol Fumarate 2 puff INHALATION RT-BID 08/05/22 08/05/22 History [Symbicort 160-4.5 Mcg Inhaler] Cetirizine HCl [Zyrtec] 20 mg PO DAILY 08/05/22 08/05/22 History predniSONE 10 mg PO DIRECTED #30 tab 08/06/22 Rx Allergies Allergy/AdvReac Type Severity Reaction Status Date / Time codeine Allergy Nausea Verified 08/05/22 21:19 latex Allergy Rash/Hives Verified 08/05/22 21:19 lisinopril Allergy Cough Verified 08/05/22 21:19 Penicillins Allergy Rash/Hives Verified 08/05/22 21:19 Sulfa (Sulfonamide Allergy Swelling Verified 08/05/22 21:19 Antibiotics) Physical Exam Osteopathic Statement: *. No significant issues noted on an osteopathic structural exam other than those noted in the History and Physical/Consult. Vitals: Vital Signs Temp Pulse Resp BP Pulse Ox 08/06/22 10:00 98.2 F 93 20 130/88 97 08/06/22 08:30 104 H 08/06/22 08:19 94 L 08/06/22 08:18 84 08/06/22 05:56 97.7 F 85 18 148/78 96 08/06/22 02:00 97.8 F 79 18 144/78 94 L 08/06/22 01:00 76 18 140/76 95 08/06/22 00:00 98.2 F 63 18 95 08/05/22 23:24 80 08/05/22 23:17 76 08/05/22 22:21 77 18 96 08/05/22 15:06 97.7 F 83 20 157/81 97 Intake and Output 08/05/22 08/06/22 08/06/22 22:59 06:59 14:59 Other: Weight 99.79 kg No acute distress, oriented 3. Currently on room air. Saturations are 97%. No audible wheezing, or use of accessory muscles. HEENT examination is grossly unremarkable. Neck supple. Full range of motion. No adenopathy thyromegaly or neck vein distention. Cardiovascular examination reveals regular rhythm rate. S1-S2 normal. No S3 or S4. No discernible murmur noted. Heart rate 93 bpm. Lungs reveal mild expiratory wheezes. No rhonchi. No crackles. Breath sounds are equal bilaterally. Room air saturation 97%. Abdomen soft bowel sounds are heard. No masses or tenderness. Extremities are intact. No cyanosis clubbing or edema. Skin is without rash or lesion. Neurologic examination is brief but nonfocal. Results - Laboratory Findings CBC and BMP: 08/05/22 16:47 08/05/22 16:47 PT/INR, D-dimer PT 10.0 sec (9.0-12.0) 08/05/22 16:47 INR 0.9 (<1.2) 08/05/22 16:47 Abnormal lab findings: Abnormal Labs 08/05/22 16:47 AST 41 H ALT 46 H - Diagnostic Findings Chest x-ray: image reviewed Assessment and Plan Assessment: Acute exacerbation of chronic bronchial asthma. History of hypertension. History of hyperlipidemia. History of Legionnaires disease. History of seasonal ALLERGIES. Prior history of tobacco use. Plan: Plan dated 08/06/2022. The patient was seen in the emergency room, room 8. She is much improved compared to yesterday when she first came in. The patient could be considered for possible discharge from the emergency room. We did let the nurse know. The patient does have an appointment to see me on August 10. She should keep that appointment. She should be discharged home with prednisone 40 mg a day, to be continued until she sees me in the office. Prognosis is guarded. Time with Patient: Greater than 30
--- NOTE | 2022-08-06 15:18 | P.HPIM ---
History of Present Illness H&P Date: 08/06/22 This is a very pleasant 67-year-old female who presented to the emergency department with increasing shortness of breath. Patient reports to having worsening shortness of breath over the last few days and hesitant to come to the ER. Patient went to her primary care provider who she follows with Dr. Sullivan in the outpatient setting with a past medical history of asthma, hypertension, renal disease, Legionnaires' disease along with seasonal ALLERGIES and obesity. Patient does follow with Dr. Ignacio and has an appointment next week with him and was seen and evaluated in the emergency department. Patient was given IV steroids along with DuoNeb treatments and reports to feeling improved. Patient does have all of her equipment and inhalers at home. Labs reviewed and within normal limits, Covid and influenza testing was negative. Chest x-ray shows no acute cardiopulmonary disease process and COPD changes. Patient was admitted with acute COPD exacerbation. Review Of Systems: Constitutional: No fever, no chills, no night sweats. No weight change. No weakness, fatigue or lethargy. No daytime sleepiness. EENT: No headache. No blurred vision or double vision, no loss of vision. No loss of Hearing, no ringing in the ears, no dizziness. No nasal drainage or congestion. No epistaxis. No sore throat. Lungs: Reports increasing shortness of breath over the last few days, reports cough, no sputum production. Reports chronic wheezing. Cardiovascular: No chest pain, no lower extremity edema. No palpitations. No paroxysmal nocturnal dyspnea. No orthopnea. No lightheadedness or dizziness. No syncopal episodes. Abdominal: No abdominal pain. No nausea, vomiting. No diarrhea. No constipation. No bloody or tarry stools.. No loss of appetite. Genitourinary: No dysuria, increased frequency, urgency. No urinary retention. Musculoskeletal: No myalgias. No muscle weakness, no gait dysfunction, no frequent falls. No back pain. No neck pain. Integumentary: No wounds, no lesions. No rash or pruritus. No unusual bruising. No change in hair or nails. Neurologic: No aphasia. No facial droop. No change in mentation. No head injury. No headache. No paralysis. No paresthesia. Psychiatric: No depression. No anxiety. No mood swings. Endocrine: No abnormal blood sugars. No weight change. No excessive sweating or thirst. No cold intolerance. PHYSICAL EXAMINATION: GENERAL: The patient is alert and oriented x4, Well developed, well nourished. Obese HEENT: Pupils are round and equally reacting to light. EOMI. no scleral icterus. No conjunctival pallor. Normocephalic, atraumatic. No pharyngeal erythema. No thyromegaly. CARDIOVASCULAR: S1 and S2 muffled PULMONARY: diminished breath sounds bilaterally with no wheezing or rhonchi noted. ABDOMEN: soft. Nontender on exam. obese. non-distended, normoactive bowel sounds. No palpable organomegaly. MUSCULOSKELETAL: No joint swelling or deformity. EXTREMITIES: No cyanosis, clubbing, or pedal edema. NEUROLOGICAL: Gross neurological examination did not reveal any focal deficits. Diffuse weakness SKIN: No rashes. Assessment: Shortness of breath secondary to acute exacerbation of chronic bronchial asthma Possible underlying COPD, follows with pulmonary outpatient and undergoing testing Hypertension Hyperlipidemia Obesity with a BMI of 36.6 History of legionnaire's disease Seasonal ALLERGY history Former smoker GI prophylaxis DVT prophylaxis Full code Plan: Recommend to continue with current medications and management with pulmonary consulted. Pulmonary evaluated the patient in the ER and follows closely with her in the outpatient setting and has an appointment next week on Tuesday with him. Patient was given IV steroids along with DuoNeb treatments and reports to feeling much better. Patient is comfortable on 94% saturation on room air and does not require oxygen at this time. Patient does not have oxygen in the outpatient setting and has been undergoing further testing including PFT with Dr. Ignacio in the office. Patient encouraged to keep the appointment for Tuesday and patient verbalized understanding. Patient reports to feeling well and feels ready to go home. Patient has been cleared by pulmonary for discharge today. Patient will continue prednisone taper and close outpatient follow-up. She will likely be discharged today. The impression and plan of care has been dictated by Loulou Patricia, nurse practitioner as directed. Dr. Blanka MD I have performed a history and examination and MDM of this patient, discussed the same with the dictator, and agree with the dictator's assessment and plan as written ,documented as a scribe. Based on total visit time, I have performed more than 50% of the visit. Any additional findings or plans will be noted. 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 Seasonal ALLERGIES. 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 History of Any Multi-Drug Resistant Organisms: None Reported Past Surgical History: No Surgical Hx Reported Additional Past Surgical History / Comment(s): Bilateral salpingectomy for benign growths in 1992. Colonoscopy 2012(next after 7yr) Past Psychological History: No Psychological Hx Reported Smoking Status: Former smoker Past Alcohol Use History: Occasional Past Drug Use History: None Reported - Past Family History Mother Family Medical History: Cancer Additional Family Medical History / Comment(s): Pancreatic cancer. Father Family Medical History: Diabetes Mellitus, Hypertension Medications and Allergies Home Medications Medication Instructions Recorded Confirmed Type Albuterol Inhaler [Ventolin Hfa 2 puff INHALATION RT-Q6H PRN 08/29/20 08/05/22 History Inhaler] Albuterol Nebulized [Ventolin 2.5 mg INHALATION RT-Q6H PRN 08/29/20 08/05/22 History Nebulized] Montelukast Sodium [Singulair] 10 mg PO HS 08/29/20 08/05/22 History Verapamil HCl [Verapamil ER] 240 mg PO HS 08/29/20 08/05/22 History Ascorbic Acid [Vitamin C] 500 mg PO BID 09/24/20 08/05/22 History Cholecalciferol (Vitamin D3) 75 mcg PO DAILY 09/24/20 08/05/22 History [Vitamin D3 (3000 Iu)] Multivitamin [Multivitamins Adult 1 tab PO DAILY 09/24/20 08/05/22 History Gummies] Atorvastatin [Lipitor] 20 mg PO HS 02/02/22 08/05/22 History Losartan Potassium [Cozaar] 25 mg PO DAILY 02/02/22 08/05/22 History Budesonide/Formoterol Fumarate 2 puff INHALATION RT-BID 08/05/22 08/05/22 History [Symbicort 160-4.5 Mcg Inhaler] Cetirizine HCl [Zyrtec] 20 mg PO DAILY 08/05/22 08/05/22 History predniSONE 10 mg PO DIRECTED #30 tab 08/06/22 Rx Allergies Allergy/AdvReac Type Severity Reaction Status Date / Time codeine Allergy Nausea Verified 12/08/22 21:19 latex Allergy Rash/Hives Verified 08/05/22 21:19 lisinopril Allergy Cough Verified 08/05/22 21:19 Penicillins Allergy Rash/Hives Verified 08/05/22 21:19 Sulfa (Sulfonamide Allergy Swelling Verified 08/05/22 21:19 Antibiotics) Physical Exam Vitals: Vital Signs Temp Pulse Resp BP Pulse Ox 08/06/22 08:30 104 H 08/06/22 08:19 94 L 08/06/22 08:18 84 08/06/22 05:56 97.7 F 85 18 148/78 96 08/06/22 02:00 97.8 F 79 18 144/78 94 L 08/06/22 01:00 76 18 140/76 95 08/06/22 00:00 98.2 F 63 18 95 08/05/22 23:24 80 08/05/22 23:17 76 08/05/22 22:21 77 18 96 08/05/22 15:06 97.7 F 83 20 157/81 97 Intake and Output 08/05/22 08/06/22 08/06/22 22:59 06:59 14:59 Other: Weight 99.79 kg Results CBC & Chem 7: 08/05/22 16:47 08/05/22 16:47 Labs: Abnormal Lab Results - Last 24 Hours (Table) 08/05/22 Range/Units 16:47 AST 41 H (14-36) U/L ALT 46 H (4-34) U/L Assessment and Plan Time with Patient: Greater than 30
--- NOTE | 2022-08-06 15:22 | P.DS ---
Providers Date of admission: 08/06/22 02:49 Expected date of discharge: 08/06/22 Attending physician: Barber Graham MD Consults: 08/06/22 00:15 Consult Physician Urgent Consulting Provider: Anoop Ignacio Reason/Comments: copd exacerbation Do you want consulting provider notified?: Yes Primary care physician: Kourtney Vizcaino [facility] Course: Final diagnosis Shortness of breath secondary to acute exacerbation of chronic bronchial asthma Possible underlying COPD, follows with pulmonary outpatient and undergoing testing Hypertension Hyperlipidemia Obesity with a BMI of 36.6 History of legionnaire's disease Seasonal ALLERGY history Former smoker GI prophylaxis DVT prophylaxis Full code Discharge disposition Patient is being discharged in a stable condition with guarded prognosis to home. Patient will follow-up with Dr. Vizcaino in the outpatient setting upon discharge. Patient is to follow up with pulmonary Dr. Ignacio as scheduled. Patient will continue prednisone taper on discharge. Total time taken is greater than 35 minutes. Hospital course This is a 67-year-old female who was recently admitted with acute COPD exacerbation being closely monitored. Patient was seen and evaluated in the ER by pulmonary who follows with her in the outpatient setting and undergoing workup and has an appointment next week with her on Tuesday and has cleared the patient for discharge with a prednisone taper and close outpatient follow-up. Patient feels improved and feels well enough to go home. Discussed with the patient about if feeling any worsening shortness of breath or difficulty in breathing to call 911 or report to the nearest emergency department. Patient verbalized understanding. Currently no reports of chest pain, worsening shortness of breath, or palpitations. Patient is afebrile. No reports of nausea or vomiting and patient is tolerating diet. Patient will be discharged home today. Guarded prognosis. Physical exam: Gen: This is a 57-year-old female awake, alert and oriented 3, well-developed, well-nourished, obese HEENT: Head is atraumatic, normocephalic. Pupils equal, round. Sclerae is anicteric. NECK: Supple. No JVD. No lymphadenopathy. No thyromegaly. LUNGS: Breath sounds diminished bilaterally more so on the right lower lobe with some expiratory forced wheezing on exam. Bronchial cough. No intercostal retractions. HEART: Regular rate and rhythm. No murmur. ABDOMEN: Soft. Obese. Bowel sounds are present. No masses. No tenderness. EXTREMITIES: No pedal edema. No calf tenderness. NEUROLOGICAL: Patient is awake, alert and oriented x3. Cranial nerves 2 through 12 are grossly intact. Please refer to medication reconciliation sheet for a list of medications. The impression and plan of care has been dictated by Loulou Patricia, Nurse Practitioner as directed. Dr. Blanka MD I have performed a history and examination and MDM of this patient, discussed the same with the dictator, and agree with the dictator's assessment and plan as written ,documented as a scribe. Based on total visit time, I have performed more than 50% of the visit. Patient Condition at Discharge: Fair Plan - Discharge Summary New Discharge Prescriptions: New predniSONE 10 mg PO DIRECTED #30 tab Continue Montelukast Sodium [Singulair] 10 mg PO HS Verapamil HCl [Verapamil ER] 240 mg PO HS Albuterol Nebulized [Ventolin Nebulized] 2.5 mg INHALATION RT-Q6H PRN PRN Reason: Shortness Of Breath Albuterol Inhaler [Ventolin Hfa Inhaler] 2 puff INHALATION RT-Q6H PRN PRN Reason: Shortness Of Breath Cholecalciferol (Vitamin D3) [Vitamin D3 (3000 Iu)] 75 mcg PO DAILY Ascorbic Acid [Vitamin C] 500 mg PO BID Multivitamin [Multivitamins Adult Gummies] 1 tab PO DAILY Losartan Potassium [Cozaar] 25 mg PO DAILY Budesonide/Formoterol Fumarate [Symbicort 160-4.5 Mcg Inhaler] 2 puff INHALATION RT-BID Atorvastatin [Lipitor] 20 mg PO HS Cetirizine HCl [Zyrtec] 20 mg PO DAILY Discharge Medication List Albuterol Inhaler [Ventolin Hfa Inhaler] 2 puff INHALATION RT-Q6H PRN 08/29/20 [History] Albuterol Nebulized [Ventolin Nebulized] 2.5 mg INHALATION RT-Q6H PRN 08/29/20 [History] Montelukast Sodium [Singulair] 10 mg PO HS 08/29/20 [History] Verapamil HCl [Verapamil ER] 240 mg PO HS 08/29/20 [History] Ascorbic Acid [Vitamin C] 500 mg PO BID 09/24/20 [History] Cholecalciferol (Vitamin D3) [Vitamin D3 (3000 Iu)] 75 mcg PO DAILY 09/24/20 [History] Multivitamin [Multivitamins Adult Gummies] 1 tab PO DAILY 09/24/20 [History] Atorvastatin [Lipitor] 20 mg PO HS 02/02/22 [History] Losartan Potassium [Cozaar] 25 mg PO DAILY 02/02/22 [History] Budesonide/Formoterol Fumarate [Symbicort 160-4.5 Mcg Inhaler] 2 puff INHALATION RT-BID 08/05/22 [History] Cetirizine HCl [Zyrtec] 20 mg PO DAILY 08/05/22 [History] predniSONE 10 mg PO DIRECTED #30 tab 08/06/22 [Rx] Follow up Appointment(s)/Referral(s): Anoop Ignacio DO [Doctor of Osteopathic Medicine] - 1 Week (Keep scheduled appointment for Tuesday) Kourtney Vizcaino MD [Primary Care Provider] - 1-2 days Activity/Diet/Wound Care/Special Instructions: Activity is limited until follow-up Continue with your inhalers and a prednisone taper Follow-up with Dr. Ignacio pulmonary as scheduled next Tuesday Follow-up with her primary care provider on discharge Discharge Disposition: HOME SELF-CARE
== END 2022-08-06 10:05 | disposition home or self-care (01) ==
LOC: EC 14:34 → 6NMEDSUR 08-06 02:49
PROVIDERS: ADMIT Internal Medicine; ATTEND Internal Medicine
DX: J45.901 Unspecified asthma with (acute) exacerbation (principal); I10 Essential (primary) hypertension; N28.9 Disorder of kidney and ureter, unspecified; E78.5 Hyperlipidemia, unspecified; E66.9 Obesity, unspecified; Z68.36 Body mass index [BMI] 36.0-36.9, adult; Z20.822 Contact with and (suspected) exposure to COVID-19; Z79.51 Long term (current) use of inhaled steroids; Z79.899 Other long term (current) drug therapy; Z88.5 Allergy status to narcotic agent; Z88.0 Allergy status to penicillin; Z88.2 Allergy status to sulfonamides; Z88.8 Allergy status to other drugs, medicaments and biological substances; Z91.040 Latex allergy status; Z90.79 Acquired absence of other genital organ(s); Z86.19 Personal history of other infectious and parasitic diseases; Z87.891 Personal history of nicotine dependence; Z98.890 Other specified postprocedural states; Z80.0 Family history of malignant neoplasm of digestive organs; Z83.3 Family history of diabetes mellitus; Z82.49 Family history of ischemic heart disease and other diseases of the circulatory system
CPT/HCPCS: 96374; 99285; 36415; 94640 ×2; 93005; 80053; 83735; 84484; 85025; 85610; 85730; 87502; 87635; 71046; G0378; J2930; J7512

== ENCOUNTER → 2022-09-16 | Outpatient (CLI) | payer MEDICARE ==
[2022-09-16 21:13] LABS: Basophils # (A) 0.08 X 10*3/uL (0.00-0.10); Eosinophils # (A) 0.21 X 10*3/uL (0.04-0.35); Eosinophils % (A) 2.7 %; HGB 13.8 g/dL (12.0-15.0); Immature Grans, Automated 0.4 %; Lymphocytes # (A) 1.54 X 10*3/uL (0.90-5.00); Lymphocytes % (A) 19.9 %; MCH 30.5 pg (27.0-32.0); MCHC 32.1 g/dL (32.0-37.0); MCV 95.1 fL (80.0-97.0); Mean Platelet Volume 10.4 fL (9.5-12.2); Monocytes % (A) 7.8 %; NRBC Per 100 WBC 0 /100 WBCS (0.0-0.0); Neutrophils # (A) 5.28 X 10*3/uL (1.80-7.70); Neutrophils % (A) 68.2 %; Platelet Count 267 X 10*3/uL (140-440); RBC 4.52 X 10*6/uL (4.10-5.20); RDW 14.5 % (11.5-14.5); WBC 7.74 X 10*3/uL (4.50-10.00)
[2022-09-16 22:28] LABS: ALT 39 U/L (8-44); AST 30 U/L (13-35); Albumin 4.4 g/dL (3.8-4.9); Albumin/Globulin Ratio 1.98 (1.60-3.17); Alkaline Phosphatase 74 U/L (41-126); BUN/Creat Ratio 18.02 Ratio (12.00-20.00); Blood Urea Nitrogen 16.7 mg/dL (9.0-27.0); Calcium 9.5 mg/dL (8.7-10.3); Carbon Dioxide 26.3 mmol/L (20.0-27.5); Chloride 102 mmol/L (96-109); Chol/HDL Ratio 1.83 Ratio; Globulin 2.2 g/dL (1.6-3.3); Glucose 93 mg/dL (70-110); LDL Cholesterol,Calculated 52.1 mg/dL (0.0-131.0); Potassium 3.9 mmol/L (3.5-5.5); Sodium 140 mmol/L (135-145); Total Protein 6.6 g/dL (6.2-8.2); VLDL Calculation 14.88 mg/dL (5.00-40.00)
== END | disposition home or self-care (01) ==
LOC: LABWHC1 10:30
PROVIDERS: ATTEND Internal Medicine
DX: Z11.59 Encounter for screening for other viral diseases (principal); E78.5 Hyperlipidemia, unspecified
CPT/HCPCS: 36415; 80053; 80061; 82306; 84443; 85025; 86803

== ENCOUNTER → 2022-11-17 | Outpatient (CLI) | payer MEDICARE ==
[2022-11-17 12:40] LABS: Basophils # (A) 0.1 k/uL (0-0.2); Basophils % (A) 1 %; Eosinophils # (A) 0.2 k/uL (0-0.7); Eosinophils % (A) 2 %; HCT 45.6 % (34.0-46.0); HGB 15.6 gm/dL (11.4-16.0); Lymphocytes # (A) 1.3 k/uL (1.0-4.8); Lymphocytes % (A) 15 %; MCH 31.4 pg (25.0-35.0); MCHC 34.2 g/dL (31.0-37.0); MCV 91.9 fL (80.0-100.0); Mean Platelet Volume 8.1; Monocytes # (A) 0.5 k/uL (0-1.0); Monocytes % (A) 5 %; Neutrophils # (A) 6.7 k/uL (1.3-7.7); Neutrophils % (A) 75 %; Platelet Count 258 k/uL (150-450); RBC 4.97 m/uL (3.80-5.40); RDW 13.1 % (11.5-15.5); WBC 8.9 k/uL (3.8-10.6)
[2022-11-17 13:29] LABS: Total Eosinophil Count 186 #EOS/uL (150-300)
[2022-11-19 00:01] LABS: Alternaria alternata IgE <0.10 kU/L; Aspergillus fumagatus IgE <0.10 kU/L; Birch IgE <0.10 kU/L; Cat Epith & Dander IgE <0.10 kU/L; Cladosporian herbarum IgE <0.10 kU/L; Cockroach IgE <0.10 kU/L; Dermato. farinae IgE <0.10 kU/L; Dog Dander IgE <0.10 kU/L; Elm IgE <0.10 kU/L; Maple (Box Elder) IgE <0.10 kU/L; Oak IgE <0.10 kU/L; Ragweed,Common IgE <0.10 kU/L; Red Top (Bentgrass) IgE <0.10 kU/L
== END | disposition home or self-care (01) ==
LOC: LABWHC1 11:07
PROVIDERS: ATTEND Internal Medicine
DX: J45.50 Severe persistent asthma, uncomplicated (principal)
CPT/HCPCS: 36415; 82785; 85008; 85025; 86003

== ENCOUNTER → 2023-01-05 | Outpatient (CLI) | payer MEDICARE | END | disposition home or self-care (01) | LOC: LABWHC1 12:21 | PROVIDERS: ATTEND Internal Medicine Cardiovascular Disease | DX: I25.79 Atherosclerosis of other coronary artery bypass graft(s) with angina pectoris (principal); R60.9 Edema, unspecified ==

== ENCOUNTER 2023-01-08 13:09 | Emergency (ER) | payer MEDICARE ==
[2023-01-08 13:16] VITALS: RESP 18; TEMP 98.5
[2023-01-08] MEDS ORDERED: ONDANSETRON 4 MG ODT STARTER PACK 2 TAB BTL PO STA (14:39)
[2023-01-08] MEDS ORDERED: MORPHINE SULFATE 4 MG/ML SYRINGE IM STA (14:39)
[2023-01-08] MEDS ORDERED: traMADol 50 MG STARTER PACK 3 TAB BTL PO STA (14:40)
--- NOTE | 2023-01-08 14:42 | ED ---
Upper Extremity HPI - General Chief Complaint: Extremity Injury, Upper Stated Complaint: rt arm injury Time Seen by Provider: 01/08/23 13:17 Source: patient, RN notes reviewed Mode of arrival: ambulatory Limitations: no limitations - History of Present Illness Initial Comments: 67-year-old female presents emergency from chief complaint of right wrist inj ury. She was grooming her dog to ensure she fell off to psychiatric herself with her arm, wrist she states is very painful, there is swelling noted, no paresthesias no head injury. - Related Data Home Medications Medication Instructions Recorded Confirmed Albuterol Inhaler [Ventolin Hfa 2 puff INHALATION RT-Q6H PRN 08/29/20 08/05/22 Inhaler] Albuterol Nebulized [Ventolin 2.5 mg INHALATION RT-Q6H PRN 08/29/20 08/05/22 Nebulized] Montelukast Sodium [Singulair] 10 mg PO HS 08/29/20 08/05/22 Verapamil HCl [Verapamil ER] 240 mg PO HS 08/29/20 08/05/22 Ascorbic Acid [Vitamin C] 500 mg PO BID 09/24/20 08/05/22 Cholecalciferol (Vitamin D3) 75 mcg PO DAILY 09/24/20 08/05/22 [Vitamin D3 (3000 Iu)] Multivitamin [Multivitamins Adult 1 tab PO DAILY 09/24/20 08/05/22 Gummies] Atorvastatin [Lipitor] 20 mg PO HS 02/02/22 08/05/22 Losartan Potassium [Cozaar] 25 mg PO DAILY 02/02/22 08/05/22 Budesonide/Formoterol Fumarate 2 puff INHALATION RT-BID 08/05/22 08/05/22 [Symbicort 160-4.5 Mcg Inhaler] Cetirizine HCl [Zyrtec] 20 mg PO DAILY 08/05/22 08/05/22 Previous Rx's Medication Instructions Recorded predniSONE 10 mg PO DIRECTED #30 tab 08/06/22 HYDROcodone/APAP 5-325MG [[place] 5] 1 each PO Q6HR PRN #12 tab 01/08/23 Allergies Allergy/AdvReac Type Severity Reaction Status Date / Time codeine Allergy Nausea Verified 08/05/22 21:19 latex Allergy Rash/Hives Verified 08/05/22 21:19 lisinopril Allergy Cough Verified 08/05/22 21:19 Penicillins Allergy Rash/Hives Verified 08/05/22 21:19 Sulfa (Sulfonamide Allergy Swelling Verified 08/05/22 21:19 Antibiotics) Review of Systems ROS Statement: Those systems with pertinent positive or pertinent negative responses have been documented in the HPI. ROS Other: All systems not noted in ROS Statement are negative. 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 Seasonal ALLERGIES. 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 History of Any Multi-Drug Resistant Organisms: None Reported Past Surgical History: No Surgical Hx Reported Additional Past Surgical History / Comment(s): Bilateral salpingectomy for benign growths in 1992. Colonoscopy 2012(next after 7yr) Past Psychological History: No Psychological Hx Reported Smoking Status: Former smoker Past Alcohol Use History: Occasional Past Drug Use History: None Reported - Past Family History Mother Family Medical History: Cancer Additional Family Medical History / Comment(s): Pancreatic cancer. Father Family Medical History: Diabetes Mellitus, Hypertension General Exam Limitations: no limitations General appearance: alert, in no apparent distress Head exam: Present: atraumatic, normocephalic, normal inspection Eye exam: Present: normal appearance, PERRL, EOMI. Absent: scleral icterus, conjunctival injection, periorbital swelling ENT exam: Present: normal exam, normal oropharynx, mucous membranes moist Neck exam: Present: normal inspection, full ROM. Absent: tenderness, meningismus, lymphadenopathy Respiratory exam: Present: normal lung sounds bilaterally. Absent: respiratory distress, wheezes, rales, rhonchi, stridor Cardiovascular Exam: Present: regular rate, normal rhythm, normal heart sounds. Absent: systolic murmur, diastolic murmur, rubs, gallop, clicks Extremities exam: Present: other (Right wrist there is swelling, tenderness at the distal forearm to wrist region neurovascular intact) Neurological exam: Present: alert Skin exam: Present: warm, dry, intact, normal color. Absent: rash Course Vital Signs 01/08/23 01/08/23 13:12 15:01 Temperature 98.5 F Pulse Rate 86 85 Respiratory 18 18 Rate Blood Pressure 164/71 143/83 O2 Sat by Pulse 96 96 Oximetry Procedures - Orthopedic Splinting/Casting Injury #1 Side: right Upper Extremity Injury Location: wrist Upper Extremity Immobilizer: wrist splint Medical Decision Making - Medical Decision Making Was pt. sent in by a medical professional or institution (SCARLETT Barragan, AMPOULE EXAMINER, urgent care, hospital, or correction...) When possible be specific @ -No Did you speak to anyone other than the patient for history (EMS, parent, family, police, friend...)? What history was obtained from this source @ -No Did you review nursing and triage notes (agree or disagree)? Why? @ -I reviewed and agree with nursing and triage notes Were old charts reviewed (outside hosp., previous admission, EMS record, old EKG, old radiological studies, urgent care reports/EKG's, correction records)? Report findings @ -No old charts were reviewed Differential Diagnosis (chest pain, altered mental status, abdominal pain women, abdominal pain men, vaginal bleeding, weakness, fever, dyspnea, syncope, headache, dizziness, GI bleed, back pain, seizure, CVA, palpatations, mental health, musculoskeletal)? @ -Right wrist fracture right wrist sprain EKG interpreted by me (3pts min.). @ -None X-rays interpreted by me (1pt min.). @ -Wrist x-ray right there is distal radius fracture with minimal displacement CT interpreted by me (1pt min.). @ -None done U/S interpreted by me (1pt. min.). @ -None done What testing was considered but not performed or refused? (CT, X-rays, U/S, labs)? Why? @ -None What meds were considered but not given or refused? Why? @ -None Did you discuss the management of the patient with other professionals (professionals i.e. SCARLETT Barragan, [employer]OULE EXAMINER, lab, RT, psych nurse, social worker delinquency prevention, operational assistant, teacher, fourth officer, case finishing machine adjuster)? Give summary @ -No Was smoking cessation discussed for >3mins.? @ -No Was critical care preformed (if so, how long)? @ -No Were there social determinants of health that impacted care today? How? (Homelessness, low income, unemployed, alcoholism, drug addiction, transp ortation, low edu. Level, literacy, decrease access to med. care, [facility], rehab)? @ -No Was there de-escalation of care discussed even if they declined (Discuss DNR or withdrawal of care, Hospice)? DNR status @ -No What co-morbidities impacted this encounter? (DM, HTN, Smoking, COPD, CAD, Cancer, CVA, ARF, Chemo, Hep., AIDS, mental health diagnosis, sleep apnea, morbid obesity)? @ -None Was patient admitted / discharged? Hospital course, mention meds given and route, prescriptions, significant lab abnormalities, going to OR and other pertinent info. @ -Discharged patient's wrist was wrapped using her preformed splint, Rashard wrap and is stable, neurovascular intact we did discuss possible minimal reduction though felt stable for orthopedic follow-up and discussion with orthopedics regarding any treatment. Undiagnosed new problem with uncertain prognosis? @ -No Drug Therapy requiring intensive monitoring for toxicity (Heparin, Nitro, Insulin, Cardizem)? @ -No Were any procedures done? @ -No Diagnosis/symptom? @ -Right distal radius fracture Acute, or Chronic, or Acute on Chronic? @ -Acute Uncomplicated (without systemic symptoms) or Complicated (systemic symptoms)? @ -Uncomplicated Side effects of treatment? @ -No Exacerbation, Progression, or Severe Exacerbation? @ -No Poses a threat to life or bodily function? How? (Chest pain, [place], [place], pneumonia, PE, COPD, DKA, ARF, appy, cholecystitis, CVA, Diverticulitis, Homicidal, Suicidal, threat to staff... and all critical care pts) @ -No Disposition Clinical Impression: Right wrist fracture Disposition: HOME SELF-CARE Condition: Stable Instructions (If sedation given, give patient instructions): Arm Fracture in Adults (ED) Additional Instructions: Please return to the Emergency Department if symptoms worsen or any other concerns. Prescriptions: HYDROcodone/APAP 5-325MG [[place] 5] 1 each PO Q6HR PRN #12 tab PRN Reason: Pain Is patient prescribed a controlled substance at d/c from ED?: Yes When asked, does pt state using other controlled substances?: No If prescribed controlled substance>3 days was MAPS reviewed?: Prescribed <3 Days If opioid is for acute pain is fill amount 7 days or less?: Yes If Rx opioid, was Start Talking consent form obtained?: Yes Referrals: Freddie Cardona MD [Primary Care Provider] - 1-2 days Vipin Chase DO [Doctor of Osteopathic Medicine] - 1-2 days Time of Disposition: 14:32
--- NOTE | 2023-01-08 14:49 | XR ---
EXAMINATION TYPE: XR wrist complete RT DATE OF EXAM: 01/08/2023 COMPARISON: None HISTORY: Fall, pain TECHNIQUE: 3 view right wrist FINDINGS: There is an impacted fracture of the distal metaphyseal radius. A longitudinal fracture thr ough the ulnar styloid likely granulomas present. No additional fractures are evident. IMPRESSION: 1. Impacted fracture distal metaphyseal radius. 2. Longitudinal fracture distal ulnar styloid
[2023-01-08 15:02] VITALS: BP 143/83; PULSE 85
== END 2023-01-08 15:02 | disposition home or self-care (01) ==
LOC: EC 13:09
DX: S52.501A Unspecified fracture of the lower end of right radius, initial encounter for closed fracture (principal); S52.611A Displaced fracture of right ulna styloid process, initial encounter for closed fracture; J45.909 Unspecified asthma, uncomplicated; I10 Essential (primary) hypertension; Z87.891 Personal history of nicotine dependence; Z79.899 Other long term (current) drug therapy; Z79.51 Long term (current) use of inhaled steroids; Z88.5 Allergy status to narcotic agent; Z91.040 Latex allergy status; Z88.0 Allergy status to penicillin; Z88.2 Allergy status to sulfonamides; Z88.6 Allergy status to analgesic agent; Z88.1 Allergy status to other antibiotic agents; Z88.8 Allergy status to other drugs, medicaments and biological substances; W07.XXXA Fall from chair, initial encounter; Y93.K3 Activity, grooming and shearing an animal
CPT/HCPCS: 73110; 99283; 96372; J2270; S0119

== ENCOUNTER → 2023-02-08 | Outpatient (CLI) | payer MEDICARE ==
[2023-02-08 10:49] VITALS: BP 147/89; PULSE 73; RESP 17; TEMP 98.3
--- NOTE | 2023-02-08 11:27 | P.HPOB ---
History of Present Illness H&P Date: 02/08/23 Chief Complaint: The patient is here for her routine gynecologic exam and ma mmogram. This is a 67-year-old G0 with an LMP of 2003. She is without gynecologic complaints and denies any postmenopausal bleeding. 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 She rarely needed to Temovate ointment. She has been using Aquaphor to the vulva on a regular basis which has been helpful. Review of Systems The patient has gained 17 pounds over the last year. She attributes this to decreased activity because of a broken arm as well as frequent use of steroids for her lung condition. She denies respiratory, cardiac, or G.I. problems. 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 Seasonal ALLERGIES. 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 History of Any Multi-Drug Resistant Organisms: None Reported Past Surgical History: No Surgical Hx Reported Additional Past Surgical History / Comment(s): Bilateral salpingectomy for benign growths in 1992. Colonoscopy 2012(next after 7yr) Past Psychological History: No Psychological Hx Reported Smoking Status: Former smoker Past Alcohol Use History: Rare (2-3 per year.) Additional Past Alcohol Use History / Comment(s): Quit smoking in 2016. Past Drug Use History: None Reported Additional History: She has been since 2019 and is not sexually active. This is her second marriage. She is a retired [employer]. - Past Family History Mother Family Medical History: Cancer Additional Family Medical History / Comment(s): Pancreatic cancer. Father Family Medical History: Diabetes Mellitus, Hypertension Medications and Allergies Home Medications Medication Instructions Recorded Confirmed Type Albuterol Inhaler [Ventolin Hfa 2 puff INHALATION RT-Q6H PRN 08/29/20 02/08/23 History Inhaler] Albuterol Nebulized [Ventolin 2.5 mg INHALATION RT-Q6H PRN 08/29/20 02/08/23 History Nebulized] Montelukast Sodium [Singulair] 10 mg PO HS 08/29/20 02/08/23 History Verapamil HCl [Verapamil ER] 120 mg PO HS 08/29/20 02/08/23 History Ascorbic Acid [Vitamin C] 500 mg PO BID 09/24/20 02/08/23 History Cholecalciferol (Vitamin D3) 75 mcg PO DAILY 09/24/20 02/08/23 History [Vitamin D3 (3000 Iu)] Multivitamin [Multivitamins Adult 1 tab PO DAILY 09/24/20 02/08/23 History Gummies] Atorvastatin [Lipitor] 20 mg PO HS 02/02/22 02/08/23 History Losartan Potassium [Cozaar] 100 mg PO DAILY 02/02/22 02/08/23 History Budesonide/Formoterol Fumarate 2 puff INHALATION RT-BID 08/05/22 02/08/23 History [Symbicort 160-4.5 Mcg Inhaler] Cetirizine HCl [Zyrtec] 20 mg PO DAILY 08/05/22 02/08/23 History Allergies Allergy/AdvReac Type Severity Reaction Status Date / Time codeine Allergy Nausea Verified 02/08/23 10:44 latex Allergy Rash/Hives Verified 02/08/23 10:44 lisinopril Allergy Cough Verified 02/08/23 10:44 Penicillins Allergy Rash/Hives Verified 02/08/23 10:44 Sulfa (Sulfonamide Allergy Swelling Verified 02/08/23 10:44 Antibiotics) Exam Vital Signs Temp Pulse Resp BP Pulse Ox 02/08/23 10:46 98.3 F 73 17 147/89 98 Intake and Output 02/07/23 02/08/23 02/08/23 22:59 06:59 14:59 Other: Weight 109.316 kg Height 5 feet 2 inches, weight 231 pounds, BMI 44.1. This is a well-developed well-nourished heavyset white female who is alert and oriented times 3 in no acute distress. HEENT: Within normal limits. NECK: Supple without mass or thyromegaly. CHEST AND LUNGS: Clear to auscultation. HEART: Regular rate and rhythm. BREASTS: Are without mass or discharge. AXILLARY EXAM: Negative for adenopathy. BACK: Negative for CVA tenderness. ABDOMEN: Soft, obese, nontender, without palpable masses. PELVIC EXAM: Normal external genitalia with mild to moderate atrophy. There is no significant pallor and no focal lesions. Cervix and vagina appear normal with mild atrophy. There is no unusual discharge. There is no evidence of prolapse. The uterus is midposition, nongravid size and nontender. There are no palpable adnexal masses or tenderness. RECTAL EXAM: Rectovaginal exam is negative for mass or tenderness and is negative for occult blood. EXTREMITIES: Nontender. IMPRESSION: 1. 67-year-old menopausal female with normal gynecologic exam. 2. History of suspected mild lichen sclerosis of the vulva with no significant physical findings at this time. This is rarely symptomatic. 3. 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 There are no significant physical findings on exam today. PLAN: 1. Pap smear was performed because of her history of JOSE ALEJANDRO exposure in utero. 2. Self breast awareness was discussed with the patient. We have also discussed symptoms associated with inflammatory breast cancer. 3. Screening mammogram will be done today. 4. Osteoporosis prevention was discussed. I have stressed the importance of adequate calcium, vitamin D and regular exercise. Recommended amounts of calcium and vitamin D were also discussed. Bone density testing will be done today. Because of her right arm bone fracture which happened at ground-level, we will consider medications even if he bone density test is still in the osteopenia range. 5. Weight control was discussed. I discussed the importance of good nutrition and regular exercise. 6. She states she was scheduled for a colonoscopy last month, but had to cancel this because of her broken arm. She will reschedule this. 7. Kenalog 0.1% ointment twice a day as needed for vulvar pruritus. She will discontinue the Temovate ointment that she was infrequently using. 8. She was advised to return in one year for her annual well woman exam and as needed.
--- NOTE | 2023-02-08 14:29 | BD ---
EXAMINATION TYPE: Axial Bone Density DATE OF EXAM: 02/08/2023 CLINICAL HISTORY: 67 years old Female. ICD-10 CODE: Z78.0 Post menopausal without HRT Height: 61.4 Weight: 228 FRAX RISK QUESTIONS: Glucocorticoids (More than 3mos): yes (Ex: prednisone, prednisolone, methylprednisolone, dexamethasone, and hydrocortisone). History of Fracture in Adulthood: yes RISK FACTORS HISTORY OF: hx of rt wrist fx 2012 and new fx 2021, hx of toe fxs 2021 History of Wrist Fracture: right, 2012, and recently, 2021 Postmenopausal woman: at 48 Hyperparathyroidism: no Adrenal Insufficiency: no MEDICATIONS: Prednisone or other steroids: yes, inhalers, copd, asthma, for about 5 yrs Additional Medications: bp meds, Singulair, inhalers, zyrtec, verapamil, vitamins, vit d, reflux meds , statin for cholesterol, Additional History: statin, reflux, cholesterol, EXAM MEASUREMENTS: Bone mineral densitometry was performed using the [employer] System. Bone mineral density as measured about the Lumbar spine is: ----- L1-L4(G/cm2): 0.987 T Score Values are as follows: ----- L1: -1.5 ----- L2: -2.2 ----- L3: -1.8 ----- L4: -1.0 ----- L1-L4: -1.7 Z Score Values are as follows: ----- L1: -1.0 ----- L2: -1.7 ----- L3: -1.3 ----- L4: -0.5 ----- L1-L4: -1.2 Bone mineral density has: Decreased -8.3% since study of: 09.24.2020 Bone mineral density about the R hip (g/cm2): 0.877 Bone mineral density about the L hip (g/cm2): 0.822 T Score values are as follows: -----R Neck: -0.5 -----L Neck: -2.0 -----R Total: -1.0 -----L Total: -1.5 Z Score values are as follows: -----R Neck: 0.4 -----L Neck: -1.1 -----R Total: -0.4 -----L Total: -0.9 Bone mineral density has: Increased 2.2% since study of: 09.24.2020 FRAX%s: The graph provided illustrates a 24.9% chance for a major osteoporotic fx and a 5.1% chance f or the hips probability for fx in 10 years time. IMPRESSION: Osteopenia (T Score between -2.5 and -1). There is slightly increased risk of fracture and the patient may be considered for treatment. Re-Screen 2-5 years. NOTE: T-SCORE=SD OF THE YOUNG ADULT MEAN.
--- NOTE | 2023-02-09 09:04 | MM ---
Reason for Exam: Screening (asymptomatic). Last screening mammogram was performed 12 month(s) ago. Patient History: Menarche at age 10. Patient has no children. Postmenopausal. Patient used Hormonal Contraceptives for 10 years. Risk Values: Sameera 5 year model risk: 1.9%. NCI Lifetime model risk: 5.9%. Prior Study Comparison: 12/04/2018 Screening Mammogram, Unknown. 09/24/2020 Bilateral Screening Mammogram, [facility]. 02/02/2022 Bilateral MG 3D screening mammo w/cad, [facility]. Tissue Density: The breast tissue is almost entirely fat. Findings: Analyzed By CAD. There is no suspicious group of microcalcifications or new suspicious mass in either breast. Overall Assessment: Negative, BI-RAD 1 Management: Screening Mammogram of both breasts in 1 year. . Patient should continue monthly self-breast exams. A clinical breast exam by your physician is recommended on an annual basis. This exam should not preclude additional follow-up of suspicious palpable abnormalities. Note on Sameera scores and lifetime risk: 1. A Sameera score greater than 3% is considered moderate risk. If this is the case, consider specialist referral to assess eligibility for a risk reducing agent. 2. If overall lifetime risk for the development of breast cancer is 20% or higher, the patient may qualify for future screening with alternating mammogram and breast MRI. Electronically signed and approved by: Chris Stallworth M.D. Radiologis
== END ==
LOC: WWCWWP 10:34
PROVIDERS: ATTEND Obstetrics & Gynecology
DX: Z12.31 Encounter for screening mammogram for malignant neoplasm of breast (principal); Z01.411 Encounter for gynecological examination (general) (routine) with abnormal findings; Z95.5 Presence of coronary angioplasty implant and graft; Z88.5 Allergy status to narcotic agent; Z91.040 Latex allergy status; Z88.0 Allergy status to penicillin; Z88.2 Allergy status to sulfonamides; Z88.8 Allergy status to other drugs, medicaments and biological substances; J45.909 Unspecified asthma, uncomplicated; I10 Essential (primary) hypertension; Z87.891 Personal history of nicotine dependence
CPT/HCPCS: 77063; 77067; 77080

== ENCOUNTER 2023-06-05 13:37 | Emergency (ER) | payer MEDICARE ==
--- NOTE | 2023-06-05 13:42 | ED ---
Arrhythmia/Palpitations HPI - General Source: patient, RN notes reviewed Mode of arrival: wheelchair Limitations: no limitations - History of Present Illness MD Complaint: rapid heart beat, "heart racing" <Luciana Burciaga - Last Filed: 06/05/23 13:43> <Anoop Underwood Suresh - Last Filed: 06/05/23 16:24> - General Chief Complaint: Arrhythmia/Palpitations Stated Complaint: Chest Pain Time Seen by Provider: 06/05/23 13:39 - History of Present Illness Initial Comments: This is a 68 year old female who presents to the emergency department for chest pain and palpitations. Symptoms started 2 hours prior to arrival. She wonders if this may have been triggered by recent steroid use for asthma. She has had palpitations with steroids before, however they are not usually this severe, and she has not had the chest pain before. The chest pain started out sharp and is now dull and going into the back. She felt like she was going to pass out when carrying her dog bed outside earlier today. (Luciana Burciaga) - Related Data Home Medications Medication Instructions Recorded Confirmed Albuterol Inhaler [Ventolin Hfa 2 puff INHALATION RT-Q6H PRN 08/29/20 02/08/23 Inhaler] Albuterol Nebulized [Ventolin 2.5 mg INHALATION RT-Q6H PRN 08/29/20 02/08/23 Nebulized] Montelukast Sodium [Singulair] 10 mg PO HS 08/29/20 02/08/23 Verapamil HCl [Calan Sr] 120 mg PO HS 08/29/20 02/08/23 Ascorbic Acid [Vitamin C] 500 mg PO BID 09/24/20 02/08/23 Cholecalciferol (Vitamin D3) 75 mcg PO DAILY 09/24/20 02/08/23 [Vitamin D3 (3000 Iu)] Multivitamin [Multivitamins Adult 1 tab PO DAILY 09/24/20 02/08/23 Gummies] Atorvastatin [Lipitor] 20 mg PO HS 02/02/22 02/08/23 Losartan Potassium [Cozaar] 100 mg PO DAILY 02/02/22 02/08/23 Budesonide/Formoterol Fumarate 2 puff INHALATION RT-BID 08/05/22 02/08/23 [Symbicort 160-4.5 Mcg Inhaler] Cetirizine HCl [Zyrtec] 20 mg PO DAILY 08/05/22 02/08/23 Previous Rx's Medication Instructions Recorded Triamcinolone 0.1% Ointment 1 applic TOPICAL BID PRN #30 gm 02/08/23 [Kenalog 0.1% Ointment] Alendronate Sodium 70 mg PO WEEKLY #12 tab 02/22/23 Albuterol Inhaler [Ventolin Hfa 2 puff INHALATION QID PRN #8 gm 05/25/23 Inhaler] predniSONE [Deltasone] 60 mg PO DAILY 5 Days #15 tab 05/25/23 Albuterol Nebulized [Ventolin 2.5 mg INHALATION Q6H 6 Days #75 ml 05/26/23 Nebulized] Azithromycin [Zithromax] 250 mg PO DAILY 4 Days #4 tab 05/26/23 Allergies Allergy/AdvReac Type Severity Reaction Status Date / Time codeine Allergy Nausea Verified 05/24/23 21:14 latex Allergy Rash/Hives Verified 05/24/23 21:14 lisinopril Allergy Cough Verified 05/24/23 21:14 Penicillins Allergy Rash/Hives Verified 05/24/23 21:14 Sulfa (Sulfonamide Allergy Swelling Verified 05/24/23 21:14 Antibiotics) Review of Systems ROS Other: All systems not noted in ROS Statement are negative. <Luciana Burciaga - Last Filed: 06/05/23 13:43> ROS Other: All systems not noted in ROS Statement are negative. <Anoop Underwood - Last Filed: 06/05/23 16:24> ROS Statement: Those systems with pertinent positive or pertinent negative responses have been documented in the HPI. 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 Seasonal ALLERGIES. 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 History of Any Multi-Drug Resistant Organisms: None Reported Past Surgical History: No Surgical Hx Reported Additional Past Surgical History / Comment(s): Bilateral salpingectomy for benig n growths in 1992. Colonoscopy 2012(next after 7yr) Past Psychological History: No Psychological Hx Reported Smoking Status: Former smoker Past Alcohol Use History: Rare Past Drug Use History: None Reported - Past Family History Mother Family Medical History: Cancer Additional Family Medical History / Comment(s): Pancreatic cancer. Father Family Medical History: Diabetes Mellitus, Hypertension <Luciana Burciaga - Last Filed: 06/05/23 13:43> General Exam <Luciana Burciaga - Last Filed: 06/05/23 13:43> General appearance: alert, in no apparent distress Head exam: Present: atraumatic, normocephalic Eye exam: Present: normal appearance, PERRL ENT exam: Present: normal exam Neck exam: Present: normal inspection. Absent: tenderness, meningismus Respiratory exam: Present: normal lung sounds bilaterally. Absent: respiratory distress, wheezes Cardiovascular Exam: Present: regular rate, normal rhythm GI/Abdominal exam: Absent: distended Extremities exam: Absent: calf tenderness Neurological exam: Present: alert, oriented X3, CN II-XII intact. Absent: motor sensory deficit Psychiatric exam: Present: normal affect, normal mood Skin exam: Present: warm, dry, intact <Anoop Unedrwood - Last Filed: 06/05/23 16:24> - General Exam Comments Initial Comments: Visual Physical Exam Vital signs reviewed General: Well-appearing, nontoxic, no acute distress. Head: Normocephalic, atraumatic Eyes: PERRLA, EOMI ENT: Airway patent Chest: Nonlabored breathing Skin: No visual rash, normal skin tone Neuro: Alert and oriented 3 Musculoskeletal: No gross abnormalities I performed the QuickNote portion of this chart. Signed Luciana Burciaga PA-C. (Luciana Burciaga) Course Vital Signs 06/05/23 13:39 Temperature 98.1 F Pulse Rate 92 Respiratory 20 Rate Blood Pressure 155/82 O2 Sat by Pulse 98 Oximetry Medical Decision Making - Lab Data Result diagrams: 06/05/23 13:58 06/05/23 13:58 <Anoop Underwood - Last Filed: 06/05/23 16:24> - Medical Decision Making Was pt. sent in by a medical professional or institution (SCARLETT Barragan, STUDENT SUPPORT COUNSELOR, urgent care, hospital, or fci...) When possible be specific @ -No Did you speak to anyone other than the patient for history (EMS, parent, family, police, friend...)? What history was obtained from this source @ -No Did you review nursing and triage notes (agree or disagree)? Why? @ -I reviewed and agree with nursing and triage notes Were old charts reviewed (outside hosp., previous admission, EMS record, old EKG, old radiological studies, urgent care reports/EKG's, fci records)? Report findings @ -No old charts were reviewed Differential Diagnosis (chest pain, altered mental status, abdominal pain women, abdominal pain men, vaginal bleeding, weakness, fever, dyspnea, syncope, headache, dizziness, GI bleed, back pain, seizure, CVA, palpatations, mental health, musculoskeletal)? @ -not applicable EKG interpreted by me (3pts min.). @ Sinus rhythm, intraventricular conduction delay rate of 80, W[place] interval 140, QRS duration 132, QTC 438, similar QRS complex compared to prior EKG X-rays interpreted by me (1pt min.). @ Chest x-ray negative for acute cardio primary findings. CT interpreted by me (1pt min.). @ -None done U/S interpreted by me (1pt. min.). @ -None done What testing was considered but not performed or refused? (CT, X-rays, U/S, labs)? Why? @ -None What meds were considered but not given or refused? Why? @ -None Did you discuss the management of the patient with other professionals (professionals i.e. , PA, STUDENT SUPPORT COUNSELOR, lab, RT, psych nurse, social media strategist, hydroelectric station operator, teacher, juvenile detention officer, catalytic case operator)? Give summary @ -No Was smoking cessation discussed for >3mins.? @ -No Was critical care preformed (if so, how long)? @ -No Were there social determinants of health that impacted care today? How? (Homele ssness, low income, unemployed, alcoholism, drug addiction, transportation, low edu. Level, literacy, decrease access to med. care, penitentiary, rehab)? @ -No Was there de-escalation of care discussed even if they declined (Discuss DNR or withdrawal of care, Hospice)? DNR status @ -No What co-morbidities impacted this encounter? (DM, HTN, Smoking, COPD, CAD, Cancer, CVA, ARF, Chemo, Hep., AIDS, mental health diagnosis, sleep apnea, morbid obesity)? @ -[Asthma Was patient admitted / discharged? Hospital course, mention meds given and route, prescriptions, significant lab abnormalities, going to OR and other pertinent info. @ 68-year-old female presented for palpitations. Symptoms resolved. Patient states she's had a complete cardiac workup including monitor. She states that this had been reported as normal. She states that she had a racing heart sensation and noted her pulse to be 130. This was prior to arrival. She denies any chest pain and states that her symptoms have resolved currently. Patient is in sinus rhythm rate of 80 on EKG. She has some decreased air entry bilaterally but no wheezing or respiratory distress. At the time my evaluation the patient had received a workup in triage and she states her symptoms were resolved and she was eager for discharge at this time. Her laboratory testing revealed a leukocytosis which is likely rate related to steroid administration. She is given return parameters and will follow closely with her primary care provider. Undiagnosed new problem with uncertain prognosis? @ -No Drug Therapy requiring intensive monitoring for toxicity (Heparin, Nitro, Insulin, Cardizem)? @ -No Were any procedures done? @ -No Diagnosis/symptom? @ Palpitations, resolved Acute, or Chronic, or Acute on Chronic? @ -Acute Uncomplicated (without systemic symptoms) or Complicated (systemic symptoms)? @ -default Side effects of treatment? @ -No Exacerbation, Progression, or Severe Exacerbation? @ -No Poses a threat to life or bodily function? How? (Chest pain, [place], AL, pneumonia, PE, COPD, DKA, ARF, appy, cholecystitis, CVA, Diverticulitis, Homicidal, Suicidal, threat to staff... and all critical care pts) @ -[Low risk at this time (Anoop Underwood) - Lab Data Lab Results 06/05/23 06/05/23 06/05/23 Range/Units 13:58 13:58 13:58 WBC 18.8 H (3.8-10.6) k/uL RBC 4.92 (3.80-5.40) m/uL Hgb 14.9 (11.4-16.0) gm/dL Hct 45.4 (34.0-46.0) % MCV 92.3 (80.0-100.0) fL MCH 30.4 (25.0-35.0) pg MCHC 32.9 (31.0-37.0) g/dL RDW 13.6 (11.5-15.5) % Plt Count 275 (150-450) k/uL MPV 7.4 Neutrophils % 86 % Lymphocytes % 10 % Monocytes % 4 % Eosinophils % 1 % Basophils % 0 % Neutrophils # 16.1 H (1.3-7.7) k/uL Lymphocytes # 1.8 (1.0-4.8) k/uL Monocytes # 0.7 (0-1.0) k/uL Eosinophils # 0.2 (0-0.7) k/uL Basophils # 0.0 (0-0.2) k/uL PT 10.3 (9.0-12.0) sec INR 1.0 (<1.2) APTT 22.9 (22.0-30.0) sec Sodium 136 L (137-145) mmol/L Potassium 4.1 (3.5-5.1) mmol/L Chloride 101 (98-107) mmol/L Carbon Dioxide 25 (22-30) mmol/L Anion Gap 10 mmol/L BUN 28 H (7-17) mg/dL Creatinine 0.81 (0.52-1.04) mg/dL Est GFR (CKD-EPI)AfAm 86 (>60 ml/min/1.73 sqM) Est GFR (CKD-EPI)NonAf 74 (>60 ml/min/1.73 sqM) Glucose 118 H (74-99) mg/dL Calcium 9.4 (8.4-10.2) mg/dL Magnesium 1.9 (1.6-2.3) mg/dL Total Bilirubin 0.9 (0.2-1.3) mg/dL AST 32 (14-36) U/L ALT 41 H (4-34) U/L Alkaline Phosphatase 64 (38-126) U/L Troponin I (0.000-0.034) ng/mL Total Protein 6.9 (6.3-8.2) g/dL Albumin 4.1 (3.5-5.0) g/dL 06/05/23 Range/Units 13:58 WBC (3.8-10.6) k/uL RBC (3.80-5.40) m/uL Hgb (11.4-16.0) gm/dL Hct (34.0-46.0) % MCV (80.0-100.0) fL MCH (25.0-35.0) pg MCHC (31.0-37.0) g/dL RDW (11.5-15.5) % Plt Count (150-450) k/uL MPV Neutrophils % % Lymphocytes % % Monocytes % % Eosinophils % % Basophils % % Neutrophils # (1.3-7.7) k/uL Lymphocytes # (1.0-4.8) k/uL Monocytes # (0-1.0) k/uL Eosinophils # (0-0.7) k/uL Basophils # (0-0.2) k/uL PT (9.0-12.0) sec INR (<1.2) APTT (22.0-30.0) sec Sodium (137-145) mmol/L Potassium (3.5-5.1) mmol/L Chloride (98-107) mmol/L Carbon Dioxide (22-30) mmol/L Anion Gap mmol/L BUN (7-17) mg/dL Creatinine (0.52-1.04) mg/dL Est GFR (CKD-EPI)AfAm (>60 ml/min/1.73 sqM) Est GFR (CKD-EPI)NonAf (>60 ml/min/1.73 sqM) Glucose (74-99) mg/dL Calcium (8.4-10.2) mg/dL Magnesium (1.6-2.3) mg/dL Total Bilirubin (0.2-1.3) mg/dL AST (14-36) U/L ALT (4-34) U/L Alkaline Phosphatase (38-126) U/L Troponin I <0.012 (0.000-0.034) ng/mL Total Protein (6.3-8.2) g/dL Albumin (3.5-5.0) g/dL Disposition <Luciana Burciaga - Last Filed: 06/05/23 13:43> Is patient prescribed a controlled substance at d/c from ED?: No Time of Disposition: 16:24 <Anoop Underwood - Last Filed: 06/05/23 16:24> Clinical Impression: Palpitations Disposition: HOME SELF-CARE Condition: Fair Instructions (If sedation given, give patient instructions): Heart Palpitations (ED) Referrals: Freddie Cardona MD [Primary Care Provider] - 1-2 days
[2023-06-05 14:12] LABS: Basophils % (A) 0 %; Eosinophils # (A) 0.2 k/uL (0-0.7); Eosinophils % (A) 1 %; HCT 45.4 % (34.0-46.0); HGB 14.9 gm/dL (11.4-16.0); Lymphocytes # (A) 1.8 k/uL (1.0-4.8); Lymphocytes % (A) 10 %; MCH 30.4 pg (25.0-35.0); MCHC 32.9 g/dL (31.0-37.0); MCV 92.3 fL (80.0-100.0); Mean Platelet Volume 7.4; Monocytes # (A) 0.7 k/uL (0-1.0); Monocytes % (A) 4 %; Neutrophils # (A) 16.1 k/uL (1.3-7.7); Neutrophils % (A) 86 %; Platelet Count 275 k/uL (150-450); RBC 4.92 m/uL (3.80-5.40); RDW 13.6 % (11.5-15.5); WBC 18.8 k/uL (3.8-10.6)
--- NOTE | 2023-06-05 14:25 | XR ---
EXAMINATION TYPE: XR chest 2V DATE OF EXAM: 06/05/2023 COMPARISON: 05/18/2023 HISTORY: Difficulty breathing TECHNIQUE: Frontal and lateral views of the chest are obtained. FINDINGS: There is no focal air space opacity, pleural effusion, or pneumothorax seen. The cardiac silhouette size is within normal limits. The osseous structures are intact. IMPRESSION: No acute cardiopulmonary process.
[2023-06-05 14:26] LABS: ALT 41 U/L (4-34); AST 32 U/L (14-36); African American GFR (CKD) 86 (>60 ml/min/1.73 sqM); Albumin 4.1 g/dL (3.5-5.0); Alkaline Phosphatase 64 U/L (38-126); Anion Gap 10 mmol/L; Blood Urea Nitrogen 28 mg/dL (7-17); Calcium 9.4 mg/dL (8.4-10.2); Carbon Dioxide 25 mmol/L (22-30); Chloride 101 mmol/L (98-107); Glucose 118 mg/dL (74-99); Magnesium 1.9 mg/dL (1.6-2.3); Non-African American GFR(CKD) 74 (>60 ml/min/1.73 sqM); Potassium 4.1 mmol/L (3.5-5.1); Sodium 136 mmol/L (137-145); Total Bilirubin 0.9 mg/dL (0.2-1.3); Total Protein 6.9 g/dL (6.3-8.2)
[2023-06-05 14:29] LABS: Partial Thromboplastin Time 22.9 sec (22.0-30.0); Prothrombin Time 10.3 sec (9.0-12.0)
[2023-06-05 16:39] VITALS: BP 141/81; PULSE 71; RESP 18; TEMP 97.9
== END 2023-06-05 16:36 | disposition home or self-care (01) ==
LOC: EC 13:37
DX: R00.2 Palpitations (principal); I10 Essential (primary) hypertension; J45.909 Unspecified asthma, uncomplicated; Z79.899 Other long term (current) drug therapy; Z87.891 Personal history of nicotine dependence; Z88.0 Allergy status to penicillin; Z88.2 Allergy status to sulfonamides; Z88.8 Allergy status to other drugs, medicaments and biological substances; Z91.040 Latex allergy status
CPT/HCPCS: 36415; 71046; 80053; 83735; 84484; 85025; 85610; 85730; 93005; 99285

== ENCOUNTER → 2023-07-07 | Outpatient (CLI) | payer MEDICARE ==
--- NOTE | 2023-07-08 09:23 | CT ---
EXAMINATION TYPE: CT chest wo con DATE OF EXAM: 07/07/2023 COMPARISON: Chest x-ray 06/05/2023 HISTORY: interstitial pulmonary disease CT DLP: 1613.2 mGycm, Automated exposure control for dose reduction was used. CONTRAST: None TECHNIQUE: Axial images were obtained at 1 mm thick sections at 10 mm intervals. This will limit po rtions of the examination which may not be visualized within the [id number]. Images were obtained in the prone and supine views. FINDINGS: Portion of the thyroid visualized is normal. No suspicious lung nodules or focal infiltrat es are present. No suspicious pulmonary fibrosis. Punctate peripheral nodule measuring 0.2 cm cyst wi thin the upper outer right apex. Series 8 image 51. There is a punctate nodule within the periphery o f the right upper lung field. Series 8 image 90. There is a 0.5 cm nodular density posterior lateral left upper lung field. Series 8 image 92. There is a 0.3 cm nodule posterior right lung. Series 8 im age 185. There is a 0.6 cm nodule posterolateral left lung base. Series 8 image 205. There is a 0.5 x 1.0 cm oval smooth bordered nodule posterior lateral right lung. Series 8 image 177. Consider follow-up PET/CT. Neoplasm is not excluded. No enlarged mediastinal or hilar adenopathy is evident. The ascending aorta diameter at the level o f the main pulmonary artery is 4.1 cm. The main pulmonary artery diameter at the bifurcation is 3.[address] sections are obtained through the upper abdomen. Abdomen is essentially unremarkable. IMPRESSION: 1. Scattered small nodules. A 1 cm nodules in the right lung. Consider PET/CT for additional evaluati on. 2. Suspicious interstitial findings not otherwise apparent
== END | disposition home or self-care (01) ==
LOC: RADCTMAIN 13:43
PROVIDERS: ATTEND Internal Medicine Critical Care Medicine
DX: J84.9 Interstitial pulmonary disease, unspecified (principal); R91.8 Other nonspecific abnormal finding of lung field
CPT/HCPCS: 71250

== ENCOUNTER → 2023-07-19 | Outpatient (CLI) | payer MEDICARE ==
--- NOTE | 2023-07-19 17:23 | P.PN ---
Progress Note - Text Progress Note Date: 07/19/23 I have called the patient today to see how she is doing with the alendronate which she has been using for approximately 4-5 months. She states she is having no problems with the medication and denies any issues with gastric reflux. I have reminded the patient the importance of taking the medication on an empty stomach, with a full glass of water, and I have recommended not laying down for 1 hour after taking the medication. She understands this and will call if problems.
== END ==
LOC: WWCWWP 16:05
PROVIDERS: ATTEND Obstetrics & Gynecology
DX: K21.9 Gastro-esophageal reflux disease without esophagitis (principal); Z88.5 Allergy status to narcotic agent; Z88.2 Allergy status to sulfonamides; Z88.0 Allergy status to penicillin; Z91.040 Latex allergy status; Z88.3 Allergy status to other anti-infective agents; Z79.899 Other long term (current) drug therapy

== ENCOUNTER → 2023-08-04 | Outpatient (CLI) | payer MEDICARE ==
--- NOTE | 2023-08-05 08:41 | PE ---
EXAMINATION TYPE: PET CT fusion skull to thigh DATE OF EXAM: 08/04/2023 COMPARISON: CT chest 07/07/2023 Prior PET/CT: None HISTORY: Solitary pulmonary nodule TECHNIQUE: Following the intravenous administration of 10 mCi of F-18 FDG, whole body images are per formed from the skull base to the midthigh. Images are reviewed on the computer in the coronal, axia l, and sagittal planes. Reconstructed rotating images are created on independent workstation and rev iewed on the computer. A localization and attenuation correction CT is performed in conjunction wit h the PET scan. DLP: 967.98 mGycm SCAN: Initial Blood glucose: 77 mg/dL Average Mediastinum SUV: 2.76 Average Liver SUV: 3.92 FINDINGS: NECK: No abnormal uptake THORAX: Lung nodules identified on lung windows, SUV is 0.46 which is nonsuspicious. Additional punct ate nodules previously identified are below the threshold for PET CT. Follow-up CT chest in 6 months can be performed. ABDOMEN: No abnormal uptake PELVIS: No abnormal uptake OSSEOUS STRUCTURES: No abnormal uptake LOCALIZATION CT: Lung nodules not as apparent on the localization CT as a previous CT. COMPARISON: Lung nodule measures 0.6 x 0.4 cm on the localization CT which is smaller than the 1.0 x 0.5 cm. IMPRESSION: 1. No suspicious uptake to suggest primary or metastatic neoplasm. 2. Follow-up CT chest in 6 months can be performed.
== END | disposition home or self-care (01) ==
LOC: RADPETMAIN 12:35
PROVIDERS: ATTEND Internal Medicine Critical Care Medicine
DX: R91.8 Other nonspecific abnormal finding of lung field (principal)
CPT/HCPCS: 78815; A9552

== ENCOUNTER → 2023-11-30 | Outpatient (CLI) | payer MEDICARE ==
--- NOTE | 2023-11-30 14:25 | MM ---
Reason for Exam: Clinical finding. Last screening mammogram was performed 10 month(s) ago. Indicated Problems: Nipple abnormality of the left side for 3 Week(s). Patient History: Menarche at age 10. Patient has no children. Postmenopausal. Patient used Hormonal Contraceptives for 10 years. Risk Values: Sameera 5 year model risk: 1.9%. NCI Lifetime model risk: 5.6%. Prior Study Comparison: 12/04/2018 Screening Mammogram, Unknown. 09/24/2020 Bilateral Screening Mammogram, [facility]. 02/02/2022 Bilateral MG 3D screening mammo w/cad, [facility]. 02/08/2023 Bilateral MG 3D screening mammo w/cad, [facility]. Tissue Density: The breasts are almost entirely fatty. Findings: Analyzed By CAD. The pattern is symmetrical. There is subtle asymmetry between the subareolar parenchymal tissue. Parenchymal tissue pattern however appears stable prior examinations. No suspicious groups of microcalcifications, spiculated or lobular masses, architectural distortion or other secondary signs of malignancy are mammographically apparent. Overall Assessment: Incomplete: need additional imaging evaluation, BI-RAD 0 Management: Diagnostic Breast Ultrasound of the left breast. A negative mammogram report should not preclude additional follow up of suspicious palpable abnormalities. Patient should continue monthly self breast exam. A clinical breast exam by your physician is recommended on an annual basis and results should be correlated with mammographic findings. Electronically signed and approved by: Jesus Lowery D.O. Radiologis
--- NOTE | 2023-12-01 11:11 | USB ---
Reason for Exam: Clinical finding. Patient History: Menarche at age 10. Patient has no children. Postmenopausal. Patient used Hormonal Contraceptives for 10 years. Risk Values: Sameera 5 year model risk: 1.9%. NCI Lifetime model risk: 5.6%. Technique: Method: Targeted. Prior Study Comparison: 09/24/2020 Bilateral Screening Mammogram, [facility]. 02/02/2022 Bilateral MG 3D screening mammo w/cad, [facility]. 02/08/2023 Bilateral MG 3D screening mammo w/cad, [facility]. Findings: The axilla of the right breast and the retroareolar of the right breast were scanned. No solid or cystic masses are identified. Shadowing is noted in the nipple region. Underlying mass is not clearly evident. Short-term follow-up can be performed as clinically indicated. Overall Assessment: Probably benign, BI-RAD 3 Management: Diagnostic Mammogram of the left breast in 6 months. Clinical Management of the left breast. A clinical breast exam by your physician is recommended on an annual basis and results should be correlated with mammographic findings. This exam should not preclude additional follow-up of suspicious palpable abnormalities. Results were given to the patient verbally at the time of exam. Electronically signed and approved by: Jesus Lowery D.O. Radiologis
== END | disposition home or self-care (01) ==
LOC: RADMAMWWP 13:52
PROVIDERS: ATTEND Internal Medicine
DX: N60.42 Mammary duct ectasia of left breast (principal); N61.0 Mastitis without abscess; Z78.0 Asymptomatic menopausal state
CPT/HCPCS: 77066; 76642; G0279; 77062

== ENCOUNTER → 2023-12-06 | Outpatient (CLI) | payer MEDICARE ==
[2023-12-06 10:29] VITALS: BP 113/73; PULSE 74; RESP 17; TEMP 97.9
--- NOTE | 2023-12-06 11:03 | P.PN ---
Progress Note - Text Progress Note Date: 12/06/23 Chief Complaint: Left breast symptoms for 2 months HPI: This is a 76-year-old G0 with an LMP of 2003. Patient started having some left breast irritation near the nipple 2 months ago. About 1 month ago she had a sharp left breast pain which felt like a needle was stuck into the breast. Later that month she had a tiny spot of discharge on her bra and this was a single episode. She had to small cysts on the left nipple one of them did resolve. She also feels the left breast may be slightly larger than the right breast and the left nipple may be slightly more inferior than it had been in the past. Currently she is no longer experiencing sharp pain but still feels some left breast irritation. She had a bilateral diagnostic mammogram and left breast ultrasound as ordered by her PCP. This was done on 11/30/2023. And was probably benign. A 6-month left diagnostic mammogram was recommended. Her breast symptoms concerned her more because she knows 3 people who have had inflammatory breast cancer, all of whom are not blood relatives. ROS: She denies respiratory, cardiac, or GI problems PE: Blood pressure: 113/73, Height: 5 feet 1 inch, Weight: 236 pounds, Temperature: 97.9, Pulse: 74. Pulse oximeter 99%. This is a well developed, well nourished, white female who is alert and orientedx3, in no acute distress. Bilateral breasts are without mass or discharge. There is minimal bilateral breast tenderness in the area of the central breast. The left nipple has a 2 mm inclusion cyst which is nontender and not erythematous. There is no nipple inversion. No skin changes outside of the nipple. Impression: 1. 68-year-old menopausal female with various left breast symptoms including irritation, slight increase in size, and the left nipple cyst. 2. Benign diagnostic mammogram and left breast ultrasound. Plan: 1. The patient was reassured that I do not feel there are any acute changes that need intervention at this time. She will continue to do self breast exams and call if there are changes. 2. Repeating the left diagnostic mammogram in 6 months as recommended. The order slip was given to the patient for this. 3. She can use warm compresses to the left nipple daily to see if the small inclusion cyst will drain. I have asked that she not poke or try to drain the cyst herself. 4. She will do the left breast diagnostic mammogram in 6 months and we will see her for her annual well woman examination at that time as well. Time spent with the patient: 15 minutes
== END ==
LOC: WWCWWP 09:53
PROVIDERS: ATTEND Obstetrics & Gynecology
DX: R92.8 Other abnormal and inconclusive findings on diagnostic imaging of breast (principal); N64.4 Mastodynia; N60.02 Solitary cyst of left breast; Z78.0 Asymptomatic menopausal state; Z88.5 Allergy status to narcotic agent; Z91.040 Latex allergy status; Z88.8 Allergy status to other drugs, medicaments and biological substances; Z88.0 Allergy status to penicillin; Z88.2 Allergy status to sulfonamides

== ENCOUNTER → 2024-03-27 | Outpatient (CLI) | payer MEDICARE ==
--- NOTE | 2024-03-27 17:27 | P.PN ---
Progress Note - Text Progress Note Date: 03/27/24 The patient called because of worsening left breast pain. She did have pain when she was seen about 4 months ago. Diagnostic mammogram and ultrasound were done on the left side which was felt to be probably benign and the plan was to repeat the diagnostic mammogram in 6 months. The patient states her left breast pain is worsening. In November it was in a smaller area of the breast, but now extends from about the 9 o'clock position to the 1 o'clock position of the left breast and it also extends into the left axilla. She also has noticing scant amounts of bloody discharge from the nipple. Impression: Worsening left breast mastodynia with small bloody discharge from the nipple. Plan: The patient will be referred to Dr. Bigg Zamorano for further evaluation and to determine what further workup is needed.
== END ==
LOC: WWCWWP 11:49
PROVIDERS: ATTEND Obstetrics & Gynecology
DX: N64.4 Mastodynia (principal); N64.52 Nipple discharge; Z88.5 Allergy status to narcotic agent; Z91.040 Latex allergy status; Z88.8 Allergy status to other drugs, medicaments and biological substances; Z88.0 Allergy status to penicillin; Z88.2 Allergy status to sulfonamides

== ENCOUNTER → 2024-03-29 | Outpatient (CLI) | payer MEDICARE ==
--- NOTE | 2024-03-29 09:30 | MM ---
Reason for Exam: Clinical finding. Last screening mammogram was performed 4 month(s) ago. Patient History: Menarche at age 10. Patient has no children. Postmenopausal. Patient used Hormonal Contraceptives for 10 years. Risk Values: Sameera 5 year model risk: 1.9%. NCI Lifetime model risk: 5.6%. Prior Study Comparison: 02/02/2022 Bilateral MG 3D screening mammo w/cad, [facility]. 02/08/2023 Bilateral MG 3D screening mammo w/cad, [facility]. 11/30/2023 Bilateral MG 3D diag mammo w/cad [facility], [facility]. Tissue Density: Left: The breasts are almost entirely fatty. Findings: Analyzed By CAD. No evidence for mass or distortion. No suspicious microcalcifications. Overall Assessment: Incomplete: need additional imaging evaluation, BI-RAD 0 Management: Diagnostic Breast Ultrasound of the left breast. . Results were given to the patient verbally at the time of exam. Patient should continue monthly self-breast exams. A clinical breast exam by your physician is recommended on an annual basis. This exam should not preclude additional follow-up of suspicious palpable abnormalities. Note on Sameera scores and lifetime risk: 1. A Sameera score greater than 3% is considered moderate risk. If this is the case, consider specialist referral to assess eligibility for a risk reducing agent. 2. If overall lifetime risk for the development of breast cancer is 20% or higher, the patient may qualify for future screening with alternating mammogram and breast MRI. Electronically signed and approved by: Chris Stallworth M.D. Radiologis
--- NOTE | 2024-03-29 09:49 | USB ---
Reason for Exam: Clinical finding. Patient History: Menarche at age 10. Patient has no children. Postmenopausal. Patient used Hormonal Contraceptives for 10 years. Risk Values: Sameera 5 year model risk: 1.9%. NCI Lifetime model risk: 5.6%. Technique: Method: Whole Breast Handheld. Prior Study Comparison: 02/02/2022 Bilateral MG 3D screening mammo w/cad, [facility]. 02/08/2023 Bilateral MG 3D screening mammo w/cad, [facility]. 11/30/2023 Bilateral MG 3D diag mammo w/cad [facility], [facility]. 11/30/2023 Left US breast limited , [facility]. Findings: The whole breast of the left breast, the axilla of the left breast and the retroareolar of the left breast were scanned. No solid or cystic masses are identified. Manage clinically. Overall Assessment: Negative, BI-RAD 1 Management: Screening Mammogram of both breasts in 8 months. A clinical breast exam by your physician is recommended on an annual basis and results should be correlated with mammographic findings. This exam should not preclude additional follow-up of suspicious palpable abnormalities. Results were given to the patient verbally at the time of exam. Electronically signed and approved by: Chris Stallworth M.D. Radiologis
== END | disposition home or self-care (01) ==
LOC: RADMAMWWP 08:59
PROVIDERS: ATTEND Surgery
DX: N64.52 Nipple discharge (principal); Z78.0 Asymptomatic menopausal state; R92.312 Mammographic fatty tissue density, left breast
CPT/HCPCS: 77065; 76641; G0279; 77061

== ENCOUNTER → 2024-07-05 | Outpatient (CLI) | payer MEDICARE ==
--- NOTE | 2024-07-05 21:45 | US ---
EXAMINATION TYPE: US liver DATE OF EXAM: 07/05/2024 COMPARISON: NONE CLINICAL INDICATION: Female, 69 years old with history of R74.01 ELEVATION OF LEVELS OF LIVER TRANSAM INASE L; TECHNIQUE: Grayscale and color Doppler imaging of the right upper quadrant was performed. FINDINGS: EXAM MEASUREMENTS: Liver Length: 14.9 cm Gallbladder Wall: 0.3 cm CBD: 0.4 cm Right Kidney: 9.3x4.7x4.9 cm TRIPPER NOTES:limited due to overlying gas/habitus Pancreas: Tail obscured by overlying bowel gas Liver: circumscribed anechoic area visualized (lt lobe): 1.2x0.8x1.3cm Gallbladder: multiple echogenic foci seen Evidence for sonographic Pena's sign: No CBD: wnl Right Kidney: No hydronephrosis or masses seen IMPRESSION: 1. Small some [facility], , 07/05/2024 9:43 PM
== END | disposition home or self-care (01) ==
LOC: RADUSWWP 10:31
PROVIDERS: ATTEND Internal Medicine
DX: R74.01 Elevation of levels of liver transaminase levels (principal)
CPT/HCPCS: 76705

== ENCOUNTER → 2025-02-14 | Outpatient (CLI) | payer MEDICARE ==
--- NOTE | 2025-02-14 09:22 | US ---
EXAMINATION TYPE: US liver DATE OF EXAM: 02/14/2025 COMPARISON: 07/05/24 CLINICAL INDICATION: Female, 69 years old with history of K789, R74.01, R93.2 ABN LIVER U/S; abnormal liver US TECHNIQUE: Grayscale and color Doppler imaging of the right upper quadrant was performed. FINDINGS: EXAM MEASUREMENTS: Liver Length: 15.2 cm Gallbladder Wall: 0.19 cm CBD: 0.36 cm Right Kidney: 8.7 x 5.8 x 4.7 cm Pancreas: parts seen appear wnl Liver: Anechoic cyst measuring 1.3 x 1.2 x 1.0cm. Gallbladder: multiple gallstones seen Evidence for sonographic Pena's sign: No CBD: wnl Right Kidney: wnl IMPRESSION: 1. No evidence for acute process. 2. Simple appearing hepatic cyst. 3. Cholelithiasis. [facility], , 02/14/2025 9:19 AM
== END | disposition home or self-care (01) ==
LOC: RADUSWWP 08:34
PROVIDERS: ATTEND Family Medicine
DX: K80.20 Calculus of gallbladder without cholecystitis without obstruction (principal); K76.89 Other specified diseases of liver; R74.01 Elevation of levels of liver transaminase levels; R93.2 Abnormal findings on diagnostic imaging of liver and biliary tract
CPT/HCPCS: 76705

== ENCOUNTER → 2025-02-21 | Outpatient (CLI) | payer MEDICARE ==
--- NOTE | 2025-02-21 15:09 | MM ---
Reason for Exam: Screening (asymptomatic). Last mammogram was performed 1 year(s) and 2 month(s) ago. Patient History: Menarche at age 10. Patient has no children. Postmenopausal. Patient used Hormonal Contraceptives for 10 years. Risk Values: Sameera 5 year model risk: 1.9%. NCI Lifetime model risk: 5.4%. Prior Study Comparison: 02/08/2023 Bilateral MG 3D screening mammo w/cad, [facility]. 11/30/2023 Bilateral MG 3D diag mammo w/cad [facility], [facility]. 03/29/2024 Left MG 3D diag mammo w/cad [facility], [facility]. Tissue Density: The breasts are almost entirely fatty. Findings: Analyzed By CAD. Right breast: There is no suspicious group of microcalcifications or new suspicious mass. Left breast: There is no suspicious group of microcalcifications or new suspicious mass. Overall Assessment: Negative, BI-RAD 1 Management: Screening Mammogram of both breasts in [address] [facility] will attempt to contact patient to return for supplemental views and ultrasound if indicated. Patient should continue monthly self-breast exams. A clinical breast exam by your physician is recommended on an annual basis. This exam should not preclude additional follow-up of suspicious palpable abnormalities. Note on Sameera scores and lifetime risk: 1. A Sameera score greater than 3% is considered moderate risk. If this is the case, consider specialist referral to assess eligibility for a risk reducing agent. 2. If overall lifetime risk for the development of breast cancer is 20% or higher, the patient may qualify for future screening with alternating mammogram and breast MRI. [facility], , 02/21/2025 3:06 PM. Electronically signed and approved by: Anoop Mcnamara DO
== END | disposition home or self-care (01) ==
LOC: RADMAMWWP 13:40
PROVIDERS: ATTEND Family Medicine
DX: Z12.31 Encounter for screening mammogram for malignant neoplasm of breast (principal); R92.313 Mammographic fatty tissue density, bilateral breasts; Z78.0 Asymptomatic menopausal state; Z92.0 Personal history of contraception
CPT/HCPCS: 77063; 77067